=== PATIENT | male | born 1935 | race Caucasian/White ===

== ENCOUNTER 2019-04-28 16:52 | Outpatient (CLI) | payer MEDICARE, SELFPAY ==
[2019-04-28 17:09] LABS: Basophils Absolute Auto 0.03 K/mm3 (0.00-0.10); Basophils Percent Auto 0.4 % (0.0-1.0); Eosinophils Absolute Auto 0.19 K/mm3 (0.02-0.50); Eosinophils Percent Auto 2.8 % (1.0-6.0); Hematocrit 35.5 % (37.0-46.0); Immature Granulocyte Absolute 0.03 K/mm3 (0.00-0.00); Immature Granulocyte Percent A 0.4 % (0.0-0.0); Lymphocytes Absolute Auto 1.79 K/mm3 (1.10-4.50); Mean Corpuscular HGB Conc 28.2 g/dL (32.0-36.0); Mean Corpuscular Hemoglobin 22.9 pg (27.0-31.0); Mean Corpuscular Volume 81.4 fL (78.0-102.0); Mean Platelet Volume 9.6 fl (8.7-11.0); Monocytes Absolute Auto 0.63 K/mm3 (0.10-0.90); Monocytes Percent Auto 9.1 % (2.0-11.0); Neutrophils Absolute Auto 4.2 K/mm3 (1.7-7.2); Neutrophils Percent Auto 61.3 % (50.0-70.0); Platelet Count Result 301 K/mm3 (150-420); Red Blood Count 4.36 M/mm3 (4.70-6.10); Red Cell Distribution Width 16.2 % (11.6-14.4); White Blood Count 6.9 K/mm3 (4.8-10.8)
[2019-04-28 17:56] LABS: Alanine Aminotransferase 15 U/L (16-63); Albumin Level 4.1 g/dL (3.4-5.0); Alkaline Phosphatase 81 U/L (46-116); Anion Gap 11.6 mmol/L (7-16); Aspartate Amino Transferase 10 U/L (15-37); Bilirubin,Total 0.4 mg/dL (0.00-1.00); Blood Urea Nitrogen 14 mg/dL (7-18); Carbon Dioxide 29 mmol/L (21-32); Chloride 105 mmol/L (98-108); Cholesterol 163 mg/dL (0-200); Estimated Glomerular Filt Rate 57; Glucose 95 mg/dL (70-99); HDL Direct 45 mg/dL (40-60); LDL Cholesterol Calculated 95 mg/dL (<130); Osmolality Calculated 292 mOsm/kg (285-295); Potassium 4.6 mmol/L (3.5-5.1); Sodium 141 mmol/L (136-145); Thyroid Stimulating Hormone 2.81 uIU/mL (0.36-3.74); Total Protein 7.3 g/dL (6.4-8.2); Triglycerides 114 mg/dL (0-150)
== END 2019-04-28 16:53 | disposition home or self-care (01) ==
LOC: CHSLAB 16:55
PROVIDERS: PCP Family Medicine; Visit Provider Family Medicine
DX: I10 Essential (primary) hypertension (principal)
CPT/HCPCS: 36415; 80053; 80061; 84443; 85025

== ENCOUNTER 2019-09-26 12:12 | Outpatient (CLI) | payer MEDICARE, SELFPAY ==
[2019-09-26 12:22] LABS: Hematocrit 35.3 % (37.0-46.0); Hemoglobin 10.6 g/dL (12.4-15.3); Mean Corpuscular Hemoglobin 25.1 pg (27.0-31.0); Mean Corpuscular Volume 83.6 fL (78.0-102.0); Mean Platelet Volume 9.7 fl (8.7-11.0); Platelet Count Result 306 K/mm3 (150-420); Red Blood Count 4.22 M/mm3 (4.70-6.10); Red Cell Distribution Width 16.1 % (11.6-14.4); White Blood Count 8.9 K/mm3 (4.8-10.8)
== END 2019-09-26 12:13 | disposition home or self-care (01) ==
PROVIDERS: PCP Family Medicine; Visit Provider Family Medicine
DX: D64.9 Anemia, unspecified (principal)
CPT/HCPCS: 36415; 85027

== ENCOUNTER 2019-10-12 11:39 | Outpatient (CLI) | payer MEDICARE, SELFPAY ==
--- NOTE | ~2019-10-12 | XR_ITS ---
XR chest 2V DATE: 10/12/2019 12:04 INDICATION: Shortness of breath, diaphoresis, weakness. TECHNIQUE: PA and lateral views COMPARISON: 02/02/2019 portable AP chest at 1840 hours FINDINGS: There is a large hiatal hernia with air fluid level. Heart size is within normal limits. There is aortic calcification, ectasia and unfolding. No pulmonary infiltrate or consolidation, pulmonary vascular congestion or pleural effusion or pneumo thorax. Diffuse osteopenia. IMPRESSION: No active cardiopulmonary disease Large hiatal hernia Reviewed, dictated and finalized at location A.
[2019-10-12 12:10] LABS: Basophils Absolute Auto 0.02 K/mm3 (0.00-0.10); Basophils Percent Auto 0.2 % (0.0-1.0); Eosinophils Absolute Auto 0.03 K/mm3 (0.02-0.50); Eosinophils Percent Auto 0.3 % (1.0-6.0); Hematocrit 24.4 % (37.0-46.0); Immature Granulocyte Absolute 0.07 K/mm3 (0.00-0.00); Immature Granulocyte Percent A 0.8 % (0.0-0.0); Lymphocytes Absolute Auto 1.04 K/mm3 (1.10-4.50); Lymphocytes Percent Auto 11.3 % (18.0-42.0); Mean Corpuscular HGB Conc 28.7 g/dL (32.0-36.0); Mean Corpuscular Hemoglobin 24.5 pg (27.0-31.0); Mean Corpuscular Volume 85.3 fL (78.0-102.0); Mean Platelet Volume 9.8 fl (8.7-11.0); Monocytes Absolute Auto 0.65 K/mm3 (0.10-0.90); Neutrophils Absolute Auto 7.4 K/mm3 (1.7-7.2); Neutrophils Percent Auto 80.4 % (50.0-70.0); Nucleated Red Blood Cells Absolute Auto 0.02 K/mm3 (0.00-0.00); Nucleated Red Blood Cells Perc 0.2 % (0-0.0); Platelet Count Result 325 K/mm3 (150-420); Red Blood Count 2.86 M/mm3 (4.70-6.10); Red Cell Distribution Width 16.5 % (11.6-14.4); White Blood Count 9.2 K/mm3 (4.8-10.8)
[2019-10-12 12:57] LABS: Alanine Aminotransferase 18 U/L (16-63); Albumin Level 3.3 g/dL (3.4-5.0); Alkaline Phosphatase 72 U/L (46-116); Anion Gap 11.8 mmol/L (7-16); Aspartate Amino Transferase 12 U/L (15-37); Bilirubin,Total 0.6 mg/dL (0.00-1.00); Blood Urea Nitrogen 42 mg/dL (7-18); CRP 0.5 mg/dL (0.0-0.9); Calcium 8.2 mg/dL (8.5-10.1); Carbon Dioxide 25 mmol/L (21-32); Chloride 102 mmol/L (98-108); Estimated Glomerular Filt Rate 49; Glucose 151 mg/dL (70-99); Osmolality Calculated 291 mOsm/kg (285-295); Potassium 4.8 mmol/L (3.5-5.1); Sodium 134 mmol/L (136-145); Total Protein 6.8 g/dL (6.4-8.2)
[2019-10-12 13:00] LABS: Thyroid Stimulating Hormone Reflex 3.01 u/IU/mL (0.36-3.74)
[2019-10-12 13:08] LABS: Add Urine Microscopic? NO; Appearance Urine Clear (Clear); Bilirubin Urine Negative (Negative); Blood Urine Negative (Negative); Color Urine Yellow (Yellow); Glucose Urine UA Negative (Negative); Ketones Urine Negative (Negative); Leukocyte Esterase Ur Negative LEU/UL (Negative); Nitrate Urine Negative (Negative); Protein Urine Negative (Negative); Urobilinogen Urine 0.2 mg/dL (0.2-1.0)
[2019-10-12 13:14] LABS: Erythrocyte Sedimentation Rate 32 mm/hr (0-20)
[2019-10-12 13:34] LABS: Vitamin B12 485 pg/mL (193-986)
[2019-10-16 19:56] LABS: Vitamin D 25 Hydroxy 34 ng/mL (30-100)
== END 2019-10-12 11:40 | disposition home or self-care (01) ==
PROVIDERS: PCP Family Medicine; Visit Provider Family Medicine
DX: R06.00 Dyspnea, unspecified (principal); R53.1 Weakness; D64.9 Anemia, unspecified; R41.82 Altered mental status, unspecified; Z01.84 Encounter for antibody response examination; Z79.899 Other long term (current) drug therapy
CPT/HCPCS: 36415; 71046; 80053; 81003; 82306; 82607; 82746; 84443; 85025; 85652; 86140; 86769

== ENCOUNTER 2019-10-12 12:22 | Emergency (ER) | payer MEDICARE, SELFPAY ==
[2019-10-12 12:22] VITALS: BP 131/76; PULSE 69; RESP 24; TEMP 36.6; O2SAT 98
--- NOTE | 2019-10-12 12:30 | ECG_ITS ---
Measurements Intervals [place] Rate: 68 P: 1 CT: 149 QRS: 17 QRSD: 86 T: 13 QT: 388 QTc: 413 Interpretive Statements SINUS RHYTHM EARLY PRECORDIAL R/S TRANSITION BASELINE WANDER- III, AVF BORDERLINE ECG Electronically Signed On 10-12-2019 12:45:02 CDT by Lawson Chavez D.O.
[2019-10-12 12:40] LABS: Occult Blood Positive (Negative)
[2019-10-12 12:44] VITALS: RESP 15
[2019-10-12 12:57] LABS: Lactic Acid 2.4 mmol/L (0.4-2.0)
[2019-10-12 13:00] LABS: Troponin I < 0.02 ng/mL (0.00-0.056)
--- NOTE | 2019-10-12 13:11 | ED.GENADULT ---
HPI - General Adult General Chief complaint: Recheck/Abnormal Lab/Rx Stated complaint: sent from dr office History of Present Illness HPI narrative: This is an 83-year-old gentleman presents from his doctor's office with fatigue weakness pale, his primary care physician is concerned about his blood counts and ordered series of labs and found his H&H to be 7 and 24.4 respectively, last H&H performed 2 weeks ago was at 10 and 35. Patient has a history of iron deficiency anemia was seen at [facility] by GI back in December of 2018, patient has a history of GERD, dementia, has been on pantoprazole 40 mg daily and depression. The patient currently appears pale is fatigued with weakness, there is currently no shortness of breath no chest pain no abdominal pain no nausea vomiting. Patient's vital signs are stable his blood pressure is 131/76 with a heart rate of 66 and respiratory O2 sats at 99% on room air. The patient denies any dysuria no flank pain no hematemesis. Onset (ago): unknown Related Data Home Medications Medication Instructions Recorded Confirmed tramadol 50 mg tablet 50 mg PO Q6H PRN 05/05/19 10/12/19 docusate sodium 100 mg PO PRN 10/12/19 10/12/19 Allergies Allergy/AdvReac Type Severity Reaction Status Date / Time cephalexin [From Keflex] Allergy Hives Verified 10/12/19 11:50 diazepam [From Valium] AdvReac Confusion Verified 10/12/19 12:45 Review of Systems Review of Systems: All systems reviewed & are unremarkable except as noted in HPI and below PMFSH Past Medical History Medical History Anemia Chronic back pain Dementia Dementia Dorsalgia Dyspnea on exertion External hemorrhoid surgical removal in 97 Hernia, abdominal Surgical repair x's 2 in the 90's Hypertension Surgical History Surgical History History of back surgery History of back surgery 2013 History of bilateral knee replacement History of knee surgery Bilateral Knees 2009 History of left hip replacement History of left hip replacement 2011 Family History Family History Mother Diabetes mellitus Emphysema of lung Father CAD (coronary artery disease) Dementia Father No problems noted. Mother No problems noted. Social History Social History Smoking status: Former smoker Tobacco type: cigarettes Smoking end date: 03/29/85 Alcohol intake: never Substance use: never Additional living arrangements comments: . Lives with . 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 Gender identity (if verbalized by the patient): Male Spiritual care concerns: No Exam Const: General: no acute distress Orientation/consciousness: patient oriented x3 HENMT: Head: normal to inspection Eyes: Conjunctivae: conjunctivae normal Pupils: Equal, round and reactive pupils present Neck: Neck: normal visual inspection Chest: Chest palpation & inspection: normal inspection of the chest Resp: Effort & Inspection: normal respiratory effort Auscultation: clear to auscultation bilaterally Cardio: Rate: regular rate Rhythm: regular rhythm GI: GI Palp: Yes Soft to palpation : Testes: Testes normal Back/Spine/Pelvis: Back: no CVA tenderness Skin: General skin exam: pallor Neuro: General: moves all extremities, no meningeal signs and no focal motor deficits Speech: normal speech Extrem: General: normal to inspection and no pedal edema Psych: Appearance: grossly normal Attitude: cooperative Course Course Emergency Course: Reassess on a patient vital signs are currently stable with a no chest pain no shortness of breath no abdominal pain, the patient has been typed and screened IV started patient receiving IV Protoni
[2019-10-12] MEDS: SODIUM CHLORIDE 0.9% IV 500 ML 999 ML IV CONT (13:19)
--- NOTE | 2019-10-12 13:43 | PC.NURSE ---
[address] [facility] FOR POSSIBLE TRANSFER. RN SPOKE WITH JUNE. AWAITING CALL BACK. [address] WALL CALLED ER TO SPEAK WITH DR. CROCKETT. PT ACCEPTED FOR TRANSFER TO [facility]. AWAITING ROOM PLACEMENT AT THIS TIME.
--- NOTE | 2019-10-12 14:45 | PC.NURSE ---
RN spoke with [facility] transfer line. Still awaiting bed placement.
--- NOTE | 2019-10-12 14:57 | PC.NURSE ---
80 MG PANTOPRAZOLE/D5W 500 ML FINISHED INFUSING AT THIS TIME. ERP AWARE.
--- NOTE | 2019-10-12 15:01 | PC.NURSE ---
SAAS CONTACTED TO ALS TRANSFER TO [facility], NO RIGA AVAILABLE FOR TRANSFER. [facility] PAGED FOR TRANSFER, AWAITING ARRIVAL.
[2019-10-12 15:08] VITALS: BP 128/58; PULSE 65; RESP 22; O2SAT 100
== END 2019-10-12 15:29 | disposition short-term general hospital (02) ==
PROVIDERS: Emergency Provider Emergency Medicine; PCP Family Medicine
DX: K92.2 Gastrointestinal hemorrhage, unspecified (principal); D64.9 Anemia, unspecified; Z87.891 Personal history of nicotine dependence
CPT/HCPCS: 36415; 83605; 84484; 86850; 86900; 86901; 93005; 96365; 99283; 99285; C9113; J7040

== ENCOUNTER 2019-10-20 10:33 | Outpatient (CLI) | payer MEDICARE, SELFPAY ==
[2019-10-20 10:49] LABS: Basophils Absolute Auto 0.04 K/mm3 (0.00-0.10); Basophils Percent Auto 0.6 % (0.0-1.0); Eosinophils Absolute Auto 0.21 K/mm3 (0.02-0.50); Hematocrit 30.9 % (37.0-46.0); Immature Granulocyte Absolute 0.04 K/mm3 (0.00-0.00); Immature Granulocyte Percent A 0.6 % (0.0-0.0); Lymphocytes Absolute Auto 1.25 K/mm3 (1.10-4.50); Lymphocytes Percent Auto 17.9 % (18.0-42.0); Mean Corpuscular HGB Conc 29.1 g/dL (32.0-36.0); Mean Corpuscular Hemoglobin 25.2 pg (27.0-31.0); Mean Corpuscular Volume 86.6 fL (78.0-102.0); Mean Platelet Volume 10.6 fl (8.7-11.0); Monocytes Absolute Auto 0.59 K/mm3 (0.10-0.90); Monocytes Percent Auto 8.5 % (2.0-11.0); Neutrophils Absolute Auto 4.9 K/mm3 (1.7-7.2); Neutrophils Percent Auto 69.4 % (50.0-70.0); Platelet Count Result 270 K/mm3 (150-420); Red Blood Count 3.57 M/mm3 (4.70-6.10); Red Cell Distribution Width 16.2 % (11.6-14.4)
[2019-10-20 12:00] LABS: Alanine Aminotransferase 20 U/L (16-63); Albumin Level 3.5 g/dL (3.4-5.0); Alkaline Phosphatase 92 U/L (46-116); Anion Gap 12.4 mmol/L (7-16); Aspartate Amino Transferase 13 U/L (15-37); Bilirubin,Total 0.4 mg/dL (0.00-1.00); Blood Urea Nitrogen 14 mg/dL (7-18); Calcium 8.3 mg/dL (8.5-10.1); Carbon Dioxide 28 mmol/L (21-32); Chloride 104 mmol/L (98-108); Estimated Glomerular Filt Rate 56; Ferritin 17 ng/mL (26-388); Glucose 102 mg/dL (70-99); Iron 11 ug/dL (65-175); Osmolality Calculated 290 mOsm/kg (285-295); Percent Iron Saturation 3 % (12-57); Potassium 4.4 mmol/L (3.5-5.1); Sodium 140 mmol/L (136-145); Total Protein 6.5 g/dL (6.4-8.2)
== END 2019-10-20 10:34 | disposition home or self-care (01) ==
PROVIDERS: PCP Family Medicine; Visit Provider Family Medicine
DX: D64.9 Anemia, unspecified (principal)
CPT/HCPCS: 36415; 80053; 82728; 83540; 83550; 85025

== ENCOUNTER 2019-10-27 09:58 | Outpatient (CLI) | payer MEDICARE, SELFPAY ==
[2019-10-27 10:08] LABS: Basophils Absolute Auto 0.04 K/mm3 (0.00-0.10); Basophils Percent Auto 0.5 % (0.0-1.0); Eosinophils Absolute Auto 0.17 K/mm3 (0.02-0.50); Eosinophils Percent Auto 2.3 % (1.0-6.0); Hematocrit 32.5 % (37.0-46.0); Hemoglobin 9.6 g/dL (12.4-15.3); Immature Granulocyte Absolute 0.03 K/mm3 (0.00-0.00); Immature Granulocyte Percent A 0.4 % (0.0-0.0); Lymphocytes Absolute Auto 1.24 K/mm3 (1.10-4.50); Lymphocytes Percent Auto 16.6 % (18.0-42.0); Mean Corpuscular HGB Conc 29.5 g/dL (32.0-36.0); Mean Corpuscular Hemoglobin 24.8 pg (27.0-31.0); Mean Platelet Volume 10.3 fl (8.7-11.0); Monocytes Absolute Auto 0.59 K/mm3 (0.10-0.90); Monocytes Percent Auto 7.9 % (2.0-11.0); Neutrophils Absolute Auto 5.4 K/mm3 (1.7-7.2); Neutrophils Percent Auto 72.3 % (50.0-70.0); Platelet Count Result 390 K/mm3 (150-420); Red Blood Count 3.87 M/mm3 (4.70-6.10); Red Cell Distribution Width 16.3 % (11.6-14.4); White Blood Count 7.5 K/mm3 (4.8-10.8)
== END 2019-10-27 09:59 | disposition home or self-care (01) ==
LOC: CHSLAB 10:00
PROVIDERS: PCP Family Medicine; Visit Provider Family Medicine
DX: D64.9 Anemia, unspecified (principal)
CPT/HCPCS: 36415; 85025

== ENCOUNTER 2019-11-01 11:39 | Outpatient (CLI) | payer MEDICARE, SELFPAY ==
[2019-11-01 11:49] LABS: Basophils Absolute Auto 0.04 K/mm3 (0.00-0.10); Basophils Percent Auto 0.6 % (0.0-1.0); Eosinophils Absolute Auto 0.25 K/mm3 (0.02-0.50); Eosinophils Percent Auto 3.7 % (1.0-6.0); Hematocrit 30.8 % (37.0-46.0); Hemoglobin 8.9 g/dL (12.4-15.3); Immature Granulocyte Absolute 0.06 K/mm3 (0.00-0.00); Immature Granulocyte Percent A 0.9 % (0.0-0.0); Lymphocytes Absolute Auto 1.37 K/mm3 (1.10-4.50); Lymphocytes Percent Auto 20.1 % (18.0-42.0); Mean Corpuscular HGB Conc 28.9 g/dL (32.0-36.0); Mean Corpuscular Hemoglobin 24.1 pg (27.0-31.0); Mean Corpuscular Volume 83.5 fL (78.0-102.0); Mean Platelet Volume 9.6 fl (8.7-11.0); Monocytes Absolute Auto 0.72 K/mm3 (0.10-0.90); Monocytes Percent Auto 10.6 % (2.0-11.0); Neutrophils Absolute Auto 4.4 K/mm3 (1.7-7.2); Neutrophils Percent Auto 64.1 % (50.0-70.0); Platelet Count Result 293 K/mm3 (150-420); Red Blood Count 3.69 M/mm3 (4.70-6.10); Red Cell Distribution Width 16.4 % (11.6-14.4); White Blood Count 6.8 K/mm3 (4.8-10.8)
== END 2019-11-01 11:40 | disposition home or self-care (01) ==
LOC: CHSLAB 11:40
PROVIDERS: PCP Family Medicine; Visit Provider Family Medicine
DX: D64.9 Anemia, unspecified (principal)
CPT/HCPCS: 36415; 85025

== ENCOUNTER 2019-11-14 15:43 | Outpatient (CLI) | payer MEDICARE, SELFPAY ==
[2019-11-14 15:54] LABS: Basophils Absolute Auto 0.05 K/mm3 (0.00-0.10); Basophils Percent Auto 0.7 % (0.0-1.0); Eosinophils Absolute Auto 0.21 K/mm3 (0.02-0.50); Eosinophils Percent Auto 2.8 % (1.0-6.0); Hematocrit 34.3 % (37.0-46.0); Hemoglobin 9.6 g/dL (12.4-15.3); Immature Granulocyte Absolute 0.04 K/mm3 (0.00-0.00); Immature Granulocyte Percent A 0.5 % (0.0-0.0); Lymphocytes Absolute Auto 1.65 K/mm3 (1.10-4.50); Lymphocytes Percent Auto 22.2 % (18.0-42.0); Mean Corpuscular Hemoglobin 24.6 pg (27.0-31.0); Mean Corpuscular Volume 87.9 fL (78.0-102.0); Mean Platelet Volume 10.3 fl (8.7-11.0); Monocytes Absolute Auto 0.74 K/mm3 (0.10-0.90); Monocytes Percent Auto 9.9 % (2.0-11.0); Neutrophils Absolute Auto 4.8 K/mm3 (1.7-7.2); Neutrophils Percent Auto 63.9 % (50.0-70.0); Platelet Count Result 310 K/mm3 (150-420); Red Cell Distribution Width 20.5 % (11.6-14.4); White Blood Count 7.4 K/mm3 (4.8-10.8)
== END 2019-11-14 15:44 | disposition home or self-care (01) ==
LOC: CHSLAB 15:44
PROVIDERS: PCP Family Medicine; Visit Provider Family Medicine
DX: D64.9 Anemia, unspecified (principal)
CPT/HCPCS: 36415; 85025

== ENCOUNTER 2019-12-05 15:23 | Outpatient (CLI) | payer MEDICARE, SELFPAY ==
[2019-12-05 15:32] LABS: Basophils Absolute Auto 0.04 K/mm3 (0.00-0.10); Basophils Percent Auto 0.7 % (0.0-1.0); Eosinophils Absolute Auto 0.17 K/mm3 (0.02-0.50); Eosinophils Percent Auto 2.8 % (1.0-6.0); Hematocrit 42.2 % (37.0-46.0); Hemoglobin 12.6 g/dL (12.4-15.3); Immature Granulocyte Absolute 0.03 K/mm3 (0.00-0.00); Immature Granulocyte Percent A 0.5 % (0.0-0.0); Lymphocytes Absolute Auto 1.59 K/mm3 (1.10-4.50); Lymphocytes Percent Auto 26.2 % (18.0-42.0); Mean Corpuscular HGB Conc 29.9 g/dL (32.0-36.0); Mean Corpuscular Volume 90.4 fL (78.0-102.0); Mean Platelet Volume 9.2 fl (8.7-11.0); Monocytes Percent Auto 9.9 % (2.0-11.0); Neutrophils Absolute Auto 3.7 K/mm3 (1.7-7.2); Neutrophils Percent Auto 59.9 % (50.0-70.0); Platelet Count Result 223 K/mm3 (150-420); Red Blood Count 4.67 M/mm3 (4.70-6.10); Red Cell Distribution Width 21.5 % (11.6-14.4); White Blood Count 6.1 K/mm3 (4.8-10.8)
== END 2019-12-05 15:24 | disposition home or self-care (01) ==
LOC: CHSLAB 15:25
PROVIDERS: PCP Family Medicine; Visit Provider Family Medicine
DX: E03.9 Hypothyroidism, unspecified (principal)
CPT/HCPCS: 36415; 85025

== ENCOUNTER 2020-03-28 09:52 | Outpatient (CLI) | payer MEDICARE, SELFPAY ==
[2020-03-28 10:02] LABS: Basophils Absolute Auto 0.03 K/mm3 (0.00-0.10); Basophils Percent Auto 0.5 % (0.0-1.0); Eosinophils Absolute Auto 0.14 K/mm3 (0.02-0.50); Eosinophils Percent Auto 2.4 % (1.0-6.0); Hematocrit 41.2 % (37.0-46.0); Hemoglobin 13.3 g/dL (12.4-15.3); Immature Granulocyte Absolute 0.03 K/mm3 (0.00-0.00); Immature Granulocyte Percent A 0.5 % (0.0-0.0); Lymphocytes Absolute Auto 1.33 K/mm3 (1.10-4.50); Lymphocytes Percent Auto 22.7 % (18.0-42.0); Mean Corpuscular HGB Conc 32.3 g/dL (32.0-36.0); Mean Corpuscular Hemoglobin 32.6 pg (27.0-31.0); Mean Platelet Volume 9.3 fl (8.7-11.0); Monocytes Absolute Auto 0.49 K/mm3 (0.10-0.90); Monocytes Percent Auto 8.4 % (2.0-11.0); Neutrophils Absolute Auto 3.8 K/mm3 (1.7-7.2); Neutrophils Percent Auto 65.5 % (50.0-70.0); Platelet Count Result 238 K/mm3 (150-420); Red Blood Count 4.08 M/mm3 (4.70-6.10); Red Cell Distribution Width 13.6 % (11.6-14.4); White Blood Count 5.9 K/mm3 (4.8-10.8)
== END 2020-03-28 09:53 | disposition home or self-care (01) ==
LOC: CHSLAB 09:54
PROVIDERS: PCP Family Medicine; Visit Provider Family Medicine
DX: D64.9 Anemia, unspecified (principal)
CPT/HCPCS: 36415; 85025

== ENCOUNTER 2020-05-05 08:21 | Inpatient (IN) | payer MEDICARE, SELFPAY ==
[2020-05-05] VITALS (8 sets, daily range): BP systolic 140–195; BP diastolic 84–105; PULSE 52–63; RESP 16–20; TEMP 36.5–37.2; O2SAT 93–97; BMI 28.2
--- NOTE | ~2020-05-05 | US_ITS ---
EXAMINATION: US carotid duplex BI DATE: 05/06/2020 10:08 INDICATION: Ataxia. TECHNIQUE: Grayscale, color Doppler, and pulsed Doppler images of the cervical carotid arteries were obtained. The degree of vessel stenosis is placed in one of the following categories: normal, <50%, 5 0-69%, >=70% but less than near-occlusion, near-occlusion, or total occlusion. Note that percent sten osis relative to normal distal artery lumen diameter is indirectly measured from velocity measurement s as described by Kamar, et al. Radiology 2003; 229:340-346. COMPARISON: None. FINDINGS: RIGHT: The right common carotid artery (CCA) peak systolic velocity (PSV) is 111 cm/s. The right internal ca rotid artery (ICA) PSV is 115 cm/s. The right ICA end-diastolic velocity (EDV) is 10 cm/s. The right ICA/CCA PSV ratio is 1.0. Grayscale and color Doppler images yield an estimate of <50% diameter reduc tion from plaque in the ICA. There is antegrade flow in the right vertebral artery. LEFT: The left CCA PSV is 93 cm/s. The left ICA PSV is 74 cm/s. The left ICA EDV is 0 cm/s. The left ICA/CC A PSV ratio is 0.8. Grayscale and color Doppler images yield an estimate of <50% diameter reduction f rom plaque in the ICA. There is antegrade flow in the left vertebral artery. IMPRESSION: 1. <50% stenosis in the right internal carotid artery. 2. <50% stenosis in the left internal carotid artery. Reviewed, dictated and finalized at location A. LER TIER
--- NOTE | ~2020-05-05 | XR_ITS ---
EXAMINATION: XR chest 2V DATE: 05/05/2020 09:11 INDICATION: Rales. Dizziness. TECHNIQUE: Frontal and lateral views of the chest were obtained on 3 radiographs. COMPARISON: Chest 2 views 10/12/2019, CT abdomen and pelvis 07/05/17 FINDINGS: There are mild airspace opacities in the mid and lower lung zones. There is a right posteri or diaphragmatic hernia that contained fat on the prior CT. No pleural effusion or pneumothorax. The heart size is normal. There is a large hiatal hernia. IMPRESSION: 1. Mild airspace opacities in the mid and lower lung zones, likely atelectasis. Pneumonia is less lik paulina. 2. Large hiatal hernia. Reviewed, dictated and finalized at location A. ION SUPERVISOR IMPRESSION: 1. Mild airspace opacities in the mid and lower lung zones, likely atelectasis. Pneumonia is less likely. 2. Large hiatal hernia.
--- NOTE | ~2020-05-05 | MR_ITS ---
EXAMINATION: MR brain/brain stem wo/w con DATE: 05/08/2020 10:51 INDICATION: Ataxia. Vertigo. TECHNIQUE: Magnetic resonance imaging (MRI) of the brain and brainstem was performed without and with 17 mL MultiHance intravenous contrast. Sequences included sagittal and axial T1-weighted FSE, axial diffusion-weighted FS EPI, axial T2*-weighted GRE, axial T2-weighted FLAIR Propeller, and axial T2-we ighted Propeller. Postcontrast sequences included axial and coronal T1-weighted FSE. Apparent diffusi on coefficient (ADC) maps were created. COMPARISON: Head CT 05/05/2020 FINDINGS: There is a small acute infarct in the right frontal lobe deep white matter. There is an acu te infarct in the medulla on the right. There are scattered areas of nonspecific increased T2-weighte d signal intensity in the cerebral white matter and bernardo. There is no intracranial hemorrhage or abno rmal mass lesion. There is mild mucosal thickening in left maxillary sinus. There are likely changes of ocular lens replacement surgeries. The mastoid air cells are normal. IMPRESSION: 1. 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 2. Extensive nonspecific cerebral white matter disease and pontine disease, which likely represents c hronic small vessel ischemic disease. Reviewed, dictated and finalized at location A. ISIONING ANALYST IMPRESSION: 1. 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 2. Extensive nonspecific cerebral white matter disease and pontine disease, whi ch likely represents chronic small vessel ischemic disease.
--- NOTE | ~2020-05-05 | CT_ITS ---
EXAMINATION: CT brain wo con DATE: 05/05/2020 09:11 INDICATION: Dizziness. TECHNIQUE: Computed tomography (CT) of the head was performed without intravenous contrast. The mA wa s adjusted according to patient size. Iterative reconstruction technique was employed. The dose-lengt h product was 529.67 mGy-cm. COMPARISON: Head CT 04/06/2012 FINDINGS: There are scattered areas of low attenuation in the cerebral white matter. There is no intr acranial hemorrhage, acute infarction, or abnormal intracranial mass lesion. The ventricles are donovan l in size. There are likely changes of ocular lens replacement surgeries. There is mild mucosal thick ening in the paranasal sinuses. The mastoid air cells are normal. IMPRESSION: 1. Worsened extensive nonspecific cerebral white matter disease, which likely represents chronic smal l vessel ischemic disease. Reviewed, dictated and finalized at location A. ENT FINANCIAL COORDINATOR IMPRESSION: 1. Worsened extensive nonspecific cerebral white matter disease, which likely r epresents chronic small vessel ischemic disease.
--- NOTE | 2020-05-05 08:31 | ED.DIZZY ---
HPI - Dizziness General Chief Complaint: Dizziness Stated Complaint: dizzy,weak Time Seen by Provider: 05/05/20 08:32 Source: patient Mode of arrival: wheelchair Limitations: no limitations History of Present Illness HPI Narrative: 84-year-old man with a history of vertigo brought in today by his for intermittent dizziness that started 2 days ago. Describes it as his head spinning. C/o nausea but no vomiting. He states he had has episodes while lying in bed. Getting out of bed is particularly difficult. He denies any recent head injury, change in his hearing, ringing in his ears, cough or cold symptoms, shortness breath, chest pain, weakness or syncope. MD elicited complaint: dizziness Onset (ago): day(s) (2) Timing: sudden onset Severity: severe Description: room spinning Context: change in body position Exacerbating factors: change in body position Relieving factors: remaining still Associated symptoms: nausea Related Data Home Medications Medication Instructions Recorded Confirmed tramadol 50 mg tablet 50 mg PO Q6H PRN 05/05/19 05/05/20 docusate sodium 100 mg PO DAILY 10/12/19 05/05/20 donepezil 5 mg PO HS 05/05/20 05/05/20 pantoprazole 40 mg PO DAILY 05/05/20 05/05/20 Allergies Allergy/AdvReac Type Severity Reaction Status Date / Time cephalexin [From Keflex] Allergy Hives Verified 04/03/20 10:03 diazepam [From Valium] AdvReac Confusion Verified 04/03/20 10:03 Review of Systems Constitutional: Constitutional: Denies chills, Denies fever(s) and Denies weakness Eyes: Eyes: Denies change in vision and Denies photophobia ENT: Denies dysphagia, Denies nasal congestion and Denies sore throat Cardiovascular: Cardiovascular: Denies chest pain and Denies radiating jaw, neck or arm pain Respiratory: Respiratory: Denies cough and Denies dyspnea Gastrointestinal: Gastrointestinal: Denies abdominal pain, Reports nausea and Denies vomiting Genitourinary: Genitourinary: Denies urinary frequency and Denies urinary incontinence Musculoskeletal: Musculoskeletal: Reports back pain, Denies arthralgias and Denies joint swelling Integumentary/Breasts: Skin/Breast: Denies pruritus, Denies erythema and Denies rash Neurologic: Reports vertigo and Denies syncope Hematologic/Lymphatic: Hematologic/Lymphatic: Denies easy bleeding and Denies easy bruising Allergic/Immunologic: Allergic/Immunologic: Denies lip swelling and Denies throat swelling [facility] Past Medical History Medical History (Updated 05/05/20 @ 09:56 by Gregorio Johnson MD) Anemia Chronic back pain Dementia Dementia Dorsalgia Dyspnea on exertion External hemorrhoid surgical removal in 97 GERD (gastroesophageal reflux disease) GI bleed Hernia, abdominal Surgical repair x's 2 in the 's Hypertension Surgical History Surgical History History of back surgery History of back surgery 2014 History of bilateral knee replacement History of knee surgery Bilateral Knees 2009 History of left hip replacement History of left hip replacement 2011 Family History Family History Mother Diabetes mellitus Emphysema of lung Father CAD (coronary artery disease) Dementia Father No problems noted. Mother No problems noted. Social History Social History Smoking status: Former smoker Tobacco type: cigarettes Smoking end date: 03/29/85 Alcohol intake: never Substance use: never Additional living arrangements comments: . Lives with . 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
--- NOTE | 2020-05-05 08:32 | ECG_ITS ---
Measurements Intervals [place] Rate: 51 P: -7 HI: 152 QRS: 26 QRSD: 90 T: 26 QT: 451 QTc: 417 Interpretive Statements SINUS BRADYCARDIA BASELINE ARTIFACT- I, III, AVL, AVF BORDERLINE ECG Electronically Signed On 05-06-2020 7:57:18 QUILL COLLECTOR by Lawson Chavez D.O.
[2020-05-05 08:54] LABS: Basophils Absolute Auto 0.04 K/mm3 (0.00-0.10); Basophils Percent Auto 0.5 % (0.0-1.0); Eosinophils Absolute Auto 0.09 K/mm3 (0.02-0.50); Eosinophils Percent Auto 1.1 % (1.0-6.0); Hematocrit 38.6 % (37.0-46.0); Hemoglobin 12.6 g/dL (12.4-15.3); Immature Granulocyte Absolute 0.06 K/mm3 (0.00-0.00); Immature Granulocyte Percent A 0.8 % (0.0-0.0); Lymphocytes Percent Auto 15.1 % (18.0-42.0); Mean Corpuscular HGB Conc 32.6 g/dL (32.0-36.0); Mean Corpuscular Hemoglobin 32.3 pg (27.0-31.0); Mean Platelet Volume 9.3 fl (8.7-11.0); Monocytes Absolute Auto 0.62 K/mm3 (0.10-0.90); Monocytes Percent Auto 7.8 % (2.0-11.0); Neutrophils Percent Auto 74.7 % (50.0-70.0); Platelet Count Result 249 K/mm3 (150-420); Red Cell Distribution Width 12.8 % (11.6-14.4)
[2020-05-05 09:13] LABS: Alanine Aminotransferase 21 U/L (16-63); Albumin Level 3.4 g/dL (3.4-5.0); Alkaline Phosphatase 67 U/L (46-116); Anion Gap 6 mmol/L (8-16); Aspartate Amino Transferase < 10 U/L (15-37); Bilirubin,Total 0.6 mg/dL (0.00-1.00); Blood Urea Nitrogen 12 mg/dL (7-18); Calcium 8.5 mg/dL (8.5-10.1); Carbon Dioxide 29 mmol/L (21-32); Chloride 98 mmol/L (98-108); Estimated CRCL calculation 43 ml/min; Estimated Glomerular Filt Rate > 60; Glucose 120 mg/dL (70-99); Osmolality Calculated 276 mOsm/kg (285-295); Potassium 4.1 mmol/L (3.5-5.1); Sodium 133 mmol/L (136-145); Total Protein 7.1 g/dL (6.4-8.2); Troponin I 11.6 ng/L (0.00-60.4)
[2020-05-05] MEDS: ONDANSETRON HCL ODT 4 MG TABLET PO (09:40)
--- NOTE | 2020-05-05 09:41 | PC.NURSE ---
Attempted insert of straight cath for UA collection, unsuccessful.
[2020-05-05 10:22] LABS: Add Urine Microscopic? NO; Appearance Urine Clear (Clear); Bilirubin Urine Negative (Negative); Blood Urine Negative (Negative); Color Urine Yellow (Yellow); Glucose Urine UA Negative (Negative); Ketones Urine Negative (Negative); Leukocyte Esterase Ur Negative (Negative); Nitrate Urine Negative (Negative); Protein Urine Negative (Negative); Specific Grav Ur 1.025 (1.010-1.020); Urobilinogen Urine 0.2 mg/dL (0.2-1.0)
--- NOTE | 2020-05-05 10:30 | ADMGEN ---
This patient, Ceferino Farias, was admitted to 2nd Floor Room 207-2. Patient/family oriented to hospital policies and general routines including ID bracelet, bed and alarms, visiting hours, pain management, procedures, bathroom and other care routines, personal items, smoking policy, room service/diet, and visiting hours. Information on how to activate the Rapid Response Team has been discussed. Patient/Family are encouraged to report perceived risks to care and to ask questions if they do not understand what they are told or what they should do.
--- NOTE | 2020-05-05 11:47 | PM.IMHP ---
H&P: HPI History of Present Illness Date/Time: 05/05/20 11:47 Chief Complaint: Dizziness Narrative: Ceferino Farias is a 84 year old male who was not the best historian. I did call the patient's and she was able to tell me the following. Starting 2 nights ago patient became dizzy. The states that this has happened in the past and usually after a day the dizziness is resolved. However patient did stumble and fell against the bathroom door frame. Patient apparently complained of some back pain and the gave the patient some tramadol for his pain. The states that his dizziness did not resolve. She then decided the next day to bring the patient to the hospital for his ongoing dizziness. states that no medications have been changed no new additions of any medication and no discontinuation of any medication. admits that patient may have not taken his donepezil once or twice. And she admits that she usually only gives the patient tramadol twice a day and states that yesterday she only give it to him once. The patient says he does not even know why he is in the hospital. Review of Systems Review of Systems: Narrative: Patient cannot remember why he is in the hospital but he is able to hold a conversation without being off subject for most of the conversation. Patient denies headache changes in vision chest pain shortness of breathing abdominal issues urinary issues muscle skeletal issues. ROS unobtainable: Yes unobtainable due to mental status (Patient does not recall why he is in the hospital) [facility] Past Medical History Medical History Anemia Chronic back pain Dementia Dementia Dorsalgia Dyspnea on exertion External hemorrhoid surgical removal in 97 GERD (gastroesophageal reflux disease) GI bleed Hernia, abdominal Surgical repair x's 2 in the 90's Hypertension Surgical History Surgical History History of back surgery History of back surgery 2014 History of bilateral knee replacement History of knee surgery Bilateral Knees 2009 History of left hip replacement History of left hip replacement 2011 Family History Family History Mother Diabetes mellitus Emphysema of lung Father CAD (coronary artery disease) Dementia Father No problems noted. Mother No problems noted. Social History Social History Smoking status: Former smoker Tobacco type: cigars Second hand tobacco smoke exposure: Yes Smoking end date: 03/29/85 Alcohol intake: current Drinks per week: 1 Substance use: never Additional living arrangements comments: . Lives with . 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 Gender identity (if verbalized by the patient): Male Spiritual care concerns: No Meds Home Medications and Allergies Home Medications Medication Instructions Recorded Confirmed Type tramadol 50 mg tablet 50 mg PO Q6H PRN 05/05/19 05/05/20 History ferrous sulfate 325 mg (65 mg 325 mg PO BID #120 tablet 06/16/19 05/05/20 Rx iron) tablet docusate sodium 100 mg PO DAILY 10/12/19 05/05/20 History citalopram 20 mg tablet 20 mg PO DAILY #90 tablet 04/03/20 05/05/20 Rx donepezil 5 mg PO HS 05/05/20 05/05/20 History pantoprazole 40 mg PO DAILY 05/05/20 05/05/20 History Allergies Allergy/AdvReac Type Severity Reaction Status Date / Time cephalexin [From Keflex] Allergy Hives Verified 04/03/20 10:03 diazepam [From Valium] AdvReac Confusion Verified 04/03/20 10:03 Vital Signs Vital Signs - 24 hr 05/05/20 08:25 05/05/20 09:20 05/05/20 09:23 Temperature 98.9 F Pulse Rate 55 L 53 L 54 L Respiratory Rate 16 Blood Pressure 164/92 H 153/86 H 140/84 Pulse Oximetry 94
--- NOTE | 2020-05-05 13:29 | PC.NURSE ---
Patient repeatedly climbed out of bed. Bed alarm on. Patient placed in recliner, feet elevated. Patient climbed out of recliner. Alarm on
--- NOTE | 2020-05-05 15:40 | PC.NURSE ---
sitter in room, pt uses urinal with assist, pt knows his is at a [employer] [facility] but thinks he is here for a knee replacement, reoriented, skin tear on elbow rewrapped with coban, pt continues to try picking at skin tears and iv
[2020-05-05] MEDS: MECLIZINE HCL 25 MG TABLET PO (16:31)
[2020-05-05] MEDS: DOCUSATE SODIUM 100 MG CAPSULE PO (16:31)
[2020-05-05] MEDS: FERROUS SULFATE 324 MG TABLET PO (16:33)
[2020-05-05] MEDS: lisinopriL 5 MG TABLET PO (18:29)
[2020-05-05] MEDS: DONEPEZIL HCL 5 MG TABLET 10 MG PO (20:27)
--- NOTE | 2020-05-05 22:05 | PC.NURSE ---
Johnnie ALTMAN, left patients room as patient has been 1:1 care for past several hours. Patient is resting at this time in bed. Stoker Erector entered room and checked on patient. Bed exit alarm was set on bed, side rails up in place.
--- NOTE | 2020-05-05 22:20 | PC.NURSE ---
Bed exit alarm going off patient trying to get out of bed to use restroom. Urinal was given. Bed exit alarm set.
--- NOTE | 2020-05-05 22:50 | PC.NURSE ---
Bed exit alarm going off. Patient unable to give description of needs. Patient was talking about needing to get home to the baby. Roll Grinder asked why baby patient was talking about, patient stated I dont know. Assisted patient back into bed and bed exit alarm set.
--- NOTE | 2020-05-05 23:00 | PC.NURSE ---
Bed exit alarm sounding and patient was trying to get out of bed to use restroom. Patient was assisted with toileting and back into bed. Bed exit alarm set.
--- NOTE | 2020-05-05 23:45 | PC.NURSE ---
Bed exit alarm was sounding off and patient had legs out of bed and trying to ambulate by self without assistance or devices. Patient needed to use restroom. Urinal was given to patient. Bed exit alarm set.
[2020-05-06] VITALS (7 sets, daily range): BP systolic 114–184; BP diastolic 58–96; PULSE 55–65; RESP 18–20; TEMP 36.4–37; O2SAT 93–96
--- NOTE | 2020-05-06 01:01 | PC.NURSE ---
Gas Or Petroleum Operator noted patient's leg and feet moving and bed and telemetry alarm sounding. Gas Or Petroleum Operator entered room and noted patients gown at neck and patient was ripping off stickers and telemetry leads. Gas Or Petroleum Operator explained that these were in place to monitor his heart. Patient stated okay and tag writer replaced sticker and leads.
[2020-05-06 05:29] LABS: Basophils Absolute Auto 0.03 K/mm3 (0.00-0.10); Basophils Percent Auto 0.5 % (0.0-1.0); Eosinophils Absolute Auto 0.11 K/mm3 (0.02-0.50); Eosinophils Percent Auto 1.7 % (1.0-6.0); Hematocrit 38.5 % (37.0-46.0); Hemoglobin 12.3 g/dL (12.4-15.3); Immature Granulocyte Absolute 0.04 K/mm3 (0.00-0.00); Immature Granulocyte Percent A 0.6 % (0.0-0.0); Lymphocytes Absolute Auto 1.16 K/mm3 (1.10-4.50); Lymphocytes Percent Auto 18.4 % (18.0-42.0); Mean Corpuscular HGB Conc 31.9 g/dL (32.0-36.0); Mean Corpuscular Hemoglobin 31.3 pg (27.0-31.0); Mean Platelet Volume 9.6 fl (8.7-11.0); Monocytes Absolute Auto 0.64 K/mm3 (0.10-0.90); Monocytes Percent Auto 10.2 % (2.0-11.0); Neutrophils Absolute Auto 4.3 K/mm3 (1.7-7.2); Neutrophils Percent Auto 68.6 % (50.0-70.0); Platelet Count Result 245 K/mm3 (150-420); Red Blood Count 3.93 M/mm3 (4.70-6.10); Red Cell Distribution Width 12.6 % (11.6-14.4); White Blood Count 6.3 K/mm3 (4.8-10.8)
[2020-05-06 05:42] LABS: Alanine Aminotransferase 19 U/L (16-63); Albumin Level 3.3 g/dL (3.4-5.0); Alkaline Phosphatase 63 U/L (46-116); Anion Gap 8 mmol/L (8-16); Aspartate Amino Transferase 12 U/L (15-37); Bilirubin,Total 0.7 mg/dL (0.00-1.00); Blood Urea Nitrogen 13 mg/dL (7-18); Calcium 8.3 mg/dL (8.5-10.1); Carbon Dioxide 28 mmol/L (21-32); Chloride 99 mmol/L (98-108); Estimated CRCL calculation 41 ml/min; Estimated Glomerular Filt Rate 59; Glucose 100 mg/dL (70-99); Osmolality Calculated 280 mOsm/kg (285-295); Potassium 4.1 mmol/L (3.5-5.1); Sodium 135 mmol/L (136-145); Total Protein 6.4 g/dL (6.4-8.2)
--- NOTE | 2020-05-06 07:20 | ECHO_ITS ---
Patient Info Name: Ceferino Farias Age: 84 years : 1935 Gender: Male Ht: 69 in Wt: 191 lbs BSA: 2.07 m2 HR: 55 bpm BP: 175 / 90 mmHg Technical Quality: Fair Exam Date: 05/06/2020 10:36 AM Exam Location: [facility] Patient Status: Inpatient Admit Date: 05/05/2020 Staff Ordering Physician: Tremayne Arroyo Shellfish Meat Separator Operator: Chelsie Cole RDCS Attending Provider: Gregorio Johnson MD Referring Physician: Cruz MULLIGAN; Exam Type: CA echo doppler color flow Study Info Indications R27.0 - Ataxia, unspecified Complete two-dimensional, color flow and Doppler transthoracic echocardiogram is performed. Strain analysis performed. History/Risk Factors Hypertension: Yes Obesity: No Tobacco Use: Former Family History: Diabetes Mellitus, Coronary Artery Disease Summary 1. Complete two-dimensional, color flow and Doppler transthoracic echocardiogram is performed. 2. Left ventricular chamber dimension is normal. 3. Left ventricular systolic function is normal, estimated at 60-65%. 4. There is mildly increased left ventricular wall thickness. 5. The left ventricular diastolic function is grade I diastolic dysfunction. 6. E/e' 12 is mildly elevated. 7. Global longitudinal strain is normal at -21.4%. 8. There is mild to moderate aortic valve regurgitation. 9. There is trace mitral valve regurgitation. 10. There is trace tricuspid valve regurgitation. Left Ventricle E/e' 12 is mildly elevated. Global longitudinal strain is normal at -21.4%. Left ventricular chamber dimension is normal. Left ventricular systolic function is normal, estimated at 60-65%. There is mildly increased left ventricular wall thickness. The left ventricular diastolic function is grade I diastolic dysfunction. Right Ventricle Right ventricular chamber dimension is normal. Right ventricular systolic function is normal. Left Atria Left atrial chamber dimension is normal. Right Atria Right atrial chamber dimension is normal. Aortic Valve The aortic valve is trileaflet. There is no aortic valve stenosis. There is mild to moderate aortic valve regurgitation. Pulmonic Valve There is no pulmonic regurgitation. Mitral Valve There is no mitral valve stenosis. There is trace mitral valve regurgitation. Tricuspid Valve There is trace tricuspid valve regurgitation. RVSP is not calculated due to an inadequate TR jet. Pericardium/Pleural There is no pericardial effusion. Inferior Vena Cava Normal inferior vena cava with >50% collapse upon inspiration consistent with normal right atrial pressure, 5 mmHg. Aorta The aortic root size at the sinus of Valsalva is normal. Left Ventricular Outflow Tract Name Value Normal LVOT 2D LVOT Diameter 2.1 cm LVOT Doppler LVOT Peak Velocity 157 cm/s LVOT Peak Gradient 10 mmHg LVOT Mean Gradient 5 mmHg LVOT VTI 31 cm LVOT VTI/AV VTI Ratio 0.8 LVOT Stroke Volume 108 ml Mitral Brooke
[2020-05-06] MEDS: KETOROLAC 15 MG/ML VIAL (*BKC) IV PUSH (09:41)
[2020-05-06] MEDS: lisinopriL 10 MG TABLET PO (09:42)
[2020-05-06] MEDS: FERROUS SULFATE 324 MG TABLET PO ×2 (09:42→17:53)
[2020-05-06] MEDS: DOCUSATE SODIUM 100 MG CAPSULE PO ×2 (09:42→17:53)
[2020-05-06] MEDS: PANTOPRAZOLE 40 MG TABLET PO (09:43)
[2020-05-06] MEDS: ASPIRIN 325 MG ENTERIC TABLET PO (09:43)
[2020-05-06] MEDS: CITALOPRAM HYDROBROMIDE 20 MG TABLET PO (09:43)
[2020-05-06] MEDS: MECLIZINE HCL 25 MG TABLET PO ×3 (09:49→17:53)
--- NOTE | 2020-05-06 13:47 | PM.IMPN ---
Progress Note: A&P Assessment and Plan (1) Vertigo: Code(s): R42 - Dizziness and giddiness Status: Acute Assessment and Plan: 05/05/2020 vertigo versus stroke versus ataxia versus other conditions, head CT was negative for an acute stroke, patient given Antivert, negative for UTI, no obvious signs of infection, no severe anemia, sitter ordered to be at patient's bedside as patient will get out of bed without calling for assistance and he is unable to walk without loss of balance this includes using a walker, Physical occupational therapy was ordered to assist with patient's balance issues. 05/06/2020 Bilateral Carodid US <50% bilateral stenosis, Echocardiogram pending, Antivert started yesterday with no improvement today, head MRI scheduled for Wednesday, PT did evaluation and states Pt will have to have someone at home with him to get him up and walking as he is unable to do this on his own at this time. Pt even states that he is unable to get up and walk because he is too dizzy. Improved from yesterday as he was trying quite often to get up and walk without assistance. (2) Dementia: Code(s): F03.90 - Unspecified dementia without behavioral disturbance Status: Chronic Assessment and Plan: 05/05/2020 continue donepezil however will increase to 10 mg nightly 05/06/2020 Continue with increased Tx, If headache persist decrease back to 5 mg (3) Hypertension: Code(s): I10 - Essential (primary) hypertension Status: Chronic Assessment and Plan: 05/05/2020 patient blood pressure seemed to be stable in the emergency room upon arrival to the floor patient did have 1 time elevated blood pressure in the 170s likely due to unfamiliar environment and patient not understanding why he was in the hospital and the fact he did know he was in the hospital, patient is not currently on any blood pressure medication from home, will monitor and make additions of medications as needed. 05/06/2020 systolic between 125 and 175, Pt denies any issues when he had the one time higher BP, Average systolic BP 157 over the past 2 days (4) Headache: Code(s): R51.9 - Headache, unspecified Status: Acute Assessment and Plan: 05/06/2020 Pt states he is having a BOLANOS but does not really qualify it as a BOLANOS, try a 1 time dose of TIII Subjective Date/time seen: 05/06/20 13:47 Pt is communicating better today. He admits to a headache without any particular focal point. Denies changes in vision. There is no improvement in his balance today. Pt denies any other issues at this time. Review of Systems Constitutional: Constitutional: Reports no additional constitutional complaints and Reports headache(s) Eyes: Eyes: Reports no additional eye complaints and Denies change in vision Cardiovascular: Cardiovascular: Reports no additional cardiovascular complaints, Denies chest pain, Denies chest pain at rest and Denies chest pain with activity Respiratory: Respiratory: Reports no additional respiratory complaints and Denies chest congestion Gastrointestinal: Gastrointestinal: Reports no additional gastrointestinal complaints Genitourinary: Genitourinary: Reports no additional male genitourinary complaints Neurologic: Reports dizziness (Mostly with movement not when laying still. ) Exam Const: General: cooperative, comfortable, no acute distress, alert, awake and Physically active Nutritional Appearance: average body habitus Resp: Effort & Inspection: normal respiratory effort Auscultation: clear to auscultation bilaterally Cardio: Rate: regular rate Heart sounds: S1 normal heart sound present and S2 normal heart sound present Neuro: General: oriented to person, oriented to place and oriented to time Cranial nerves: Yes CN's II-XII intact bilaterally, Yes Equal, round and reactive pupils present, Yes facial symmetry, Yes Midline tongue present and Yes Ability to bilaterally rotate head present (causes dizziness) Motor exam (ne
[2020-05-06] MEDS: ACETAMINOPHEN/CODEINE (*CRX) 300/30 MG TABLET 1 TAB PO (14:38)
[2020-05-06] MEDS: DONEPEZIL HCL 5 MG TABLET 10 MG PO (20:18)
[2020-05-07] VITALS (8 sets, daily range): BP systolic 96–158; BP diastolic 52–114; PULSE 55–80; RESP 18; TEMP 36.4–36.8; O2SAT 92–98
[2020-05-07] MEDS: MECLIZINE HCL 25 MG TABLET PO ×3 (09:54→16:35)
[2020-05-07] MEDS: ASPIRIN 325 MG ENTERIC TABLET PO (09:54)
[2020-05-07] MEDS: ACETAMINOPHEN 500 MG TABLET 1000 MG PO ×2 (09:54→20:34)
[2020-05-07] MEDS: DOCUSATE SODIUM 100 MG CAPSULE PO ×2 (09:55→16:34)
[2020-05-07] MEDS: FERROUS SULFATE 324 MG TABLET PO ×2 (09:55→16:34)
[2020-05-07] MEDS: CITALOPRAM HYDROBROMIDE 20 MG TABLET PO (09:55)
[2020-05-07] MEDS: lisinopriL 10 MG TABLET PO (09:55)
[2020-05-07] MEDS: PANTOPRAZOLE 40 MG TABLET PO (09:55)
--- NOTE | 2020-05-07 13:57 | WPDPN ---
Progress Note: A&P Assessment and Plan (1) Dizziness and giddiness: Code(s): R42 - Dizziness and giddiness Status: Acute Assessment and Plan: No improvement Possible causes vertigo versus CVA versus ataxia CT of the head no acute findings Carotid ultrasound to 50% bilateral stenosis Echo indicates grade 1 diastolic dysfunction Antivert started MRI scheduled for tomorrow Unable to rehab patient due to dizziness Started orthostatics Vitamin B12, TSH pending otoscope exam of ear negative (2) Dementia: Code(s): F03.90 - Unspecified dementia without behavioral disturbance Status: Chronic Assessment and Plan: Continue donepezil (3) Hypertension: Code(s): I10 - Essential (primary) hypertension Status: Chronic Assessment and Plan: Slightly elevated Will possibly start antihypertension medication (4) Headache: Code(s): R51.9 - Headache, unspecified Status: Acute Assessment and Plan: Resolved We will continue to monitor Review of Systems Review of Systems: All systems reviewed & are unremarkable except as noted in HPI and below (10 point system review) Exam Narrative: Exam Narrative: GENERAL: This is a well-nourished, well-developed patient, in no apparent distress. HEAD: normocephalic, atraumatic. EYES: PERRL. Sclera clear/white. Vision is grossly intact. EARS: External ears normal, auditory canals clear and without drainage, TMs normal without perforation. Hearing grossly intact. NOSE: External nose normal with no obvious nasal discharge, nares without redness, no rhinorrhea. THROAT: Mucous membranes moist, posterior pharynx clear. NECK: Neck supple, non-tender without lymphadenopathy, masses or thyromegaly. CARDIOVASCULAR: Regular rate and rhythm without murmurs, gallops, or rubs. RESPIRATORY: Clear to auscultation. Breath sounds equal bilaterally. No wheezes, rales, or rhonchi. GASTROINTESTINAL: Abdomen soft, non-tender, nondistended. Bowel sounds are active. No hepato-splenomegaly, or palpable masses. No guarding. SKIN: warm, intact with no suspicious lesions or rash, good texture and turgor. NEURO: awake, alert, and oriented to person, place and time. There were no obvious focal neurologic abnormalities. EXTREMITIES: Normal range of motion. No edema. No calf tenderness. Negative Homans sign bilaterally. BACK: Nontender without deformity or crepitance. No flank tenderness. Objective Data Vital Signs Vital Signs: Vital Signs - 24 hr 05/06/20 16:00 05/06/20 20:00 05/07/20 00:00 Temperature 98.6 F 97.9 F 97.5 F L Pulse Rate 62 65 80 Respiratory Rate 18 20 18 Blood Pressure 184/96 H 114/65 128/76 Pulse Oximetry 96 95 93 05/07/20 04:00 05/07/20 07:40 05/07/20 12:10 Temperature 98.3 F 97.9 F 97.9 F Pulse Rate 72 63 61 Respiratory Rate 18 18 18 Blood Pressure 138/70 158/91 H 96/52 L Pulse Oximetry 92 92 95 05/07/20 13:35 Temperature Pulse Rate Respiratory Rate Blood Pressure 106/60 Pulse Oximetry Intake/Output Intake/Output: Intake & Output 05/04/20 05/05/20 05/06/20 05/07/20 23:59 23:59 23:59 23:59 Intake Total 730 1160 810 Output Total 575 1400 700 Balance 155 -240 110 Meds/Results Medications: Active Medications Generic Name Dose Route Start Last Admin Trade Name Freq PRN Reason Stop Dose Admin Acetaminophen 1,000 mg 05/05/20 18:10 05/07/20 09:54 Acetaminophen 500 Mg Tablet PO 1,000 mg Q6H PRN Administration Mild Pain (1-3) or Fever Aspirin 325 mg 05/06/20 09:00 05/07/20 09:54 Aspirin 325 Mg Enteric Tablet PO 325 mg QAM ERIKA Administration Citalopram Hydrobromide 20 mg 05/06/20 09:00 05/07/20 09:55 Citalopram Hydrobromide 20 Mg Tablet PO 20 mg DAILY ERIKA Administration Docusate Sodium 100 mg 05/05/20 17:00 05/07/20 09:55 Docusate Sodium 100 Mg Capsule PO 100 mg BID ERIKA Administration Donepezil HCl 10 mg 05/05/20 21:00 05/06/20
[2020-05-07] MEDS: DONEPEZIL HCL 5 MG TABLET 10 MG PO (21:31)
[2020-05-08] VITALS (11 sets, daily range): BP systolic 95–183; BP diastolic 49–116; PULSE 56–61; RESP 16–20; TEMP 36.2–37; O2SAT 94–98
[2020-05-08 05:59] LABS: Hematocrit 38.3 % (37.0-46.0); Hemoglobin 12.7 g/dL (12.4-15.3); Mean Corpuscular HGB Conc 33.2 g/dL (32.0-36.0); Mean Corpuscular Hemoglobin 32.5 pg (27.0-31.0); Mean Platelet Volume 9.7 fl (8.7-11.0); Platelet Count Result 263 K/mm3 (150-420); Red Blood Count 3.91 M/mm3 (4.70-6.10); Red Cell Distribution Width 12.7 % (11.6-14.4); White Blood Count 6.7 K/mm3 (4.8-10.8)
[2020-05-08 06:45] LABS: Alanine Aminotransferase 20 U/L (16-63); Albumin Level 3.3 g/dL (3.4-5.0); Alkaline Phosphatase 68 U/L (46-116); Anion Gap 9 mmol/L (8-16); Aspartate Amino Transferase 11 U/L (15-37); Bilirubin,Total 0.6 mg/dL (0.00-1.00); Blood Urea Nitrogen 16 mg/dL (7-18); Calcium 8.6 mg/dL (8.5-10.1); Carbon Dioxide 27 mmol/L (21-32); Chloride 100 mmol/L (98-108); Estimated CRCL calculation 41 ml/min; Estimated Glomerular Filt Rate 59; Glucose 93 mg/dL (70-99); Magnesium 2.2 mg/dL (1.8-2.4); Osmolality Calculated 283 mOsm/kg (285-295); Potassium 4.1 mmol/L (3.5-5.1); Sodium 136 mmol/L (136-145); Total Protein 6.4 g/dL (6.4-8.2); Vitamin B12 596 pg/mL (193-986)
[2020-05-08 07:08] LABS: Folic Acid > 20.0 ng/mL (8.6->20)
[2020-05-08 07:33] LABS: Thyroid Stimulating Hormone Reflex 3.53 u/IU/mL (0.36-3.74)
[2020-05-08] MEDS: ACETAMINOPHEN 500 MG TABLET 1000 MG PO ×2 (09:26→16:19)
--- NOTE | 2020-05-08 09:30 | PC.NURSE ---
Blood pressure taken right after patient sat up and then 15 minutes after patient had been sitting up. Patients blood pressure dropped significantly after sitting up for 15 minutes. Patient reports headache with blood pressure drop. [employer] PROGRAMMER and MD notified of blood pressure.
[2020-05-08] MEDS: lisinopriL 10 MG TABLET PO (10:59)
[2020-05-08] MEDS: MECLIZINE HCL 25 MG TABLET PO ×3 (10:59→16:19)
[2020-05-08] MEDS: PANTOPRAZOLE 40 MG TABLET PO (10:59)
[2020-05-08] MEDS: DOCUSATE SODIUM 100 MG CAPSULE PO ×2 (10:59→16:19)
[2020-05-08] MEDS: FERROUS SULFATE 324 MG TABLET PO ×2 (10:59→16:19)
[2020-05-08] MEDS: CITALOPRAM HYDROBROMIDE 20 MG TABLET PO (10:59)
[2020-05-08] MEDS: ASPIRIN 325 MG ENTERIC TABLET PO (10:59)
[2020-05-08] MEDS: amLODIPine BESYLATE 5 MG TABLET PO (11:00)
--- NOTE | 2020-05-08 13:15 | P.PN_ITS ---
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 * Patient will transition to swing bed * Vitamin B12, TSH within normal limit * otoscope exam of ear negative <Billei Dubois HIRAM-C - Last Filed: 05/08/20 13:37> (2) Dementia: Code(s): F03.90 - Unspecified dementia without behavioral disturbance <Billie Dubois HIRAM-C - Last Filed: 05/08/20 13:37> Status: Chronic <Billie Dubois HIRAM-C - Last Filed: 05/08/20 13:37> Assessment and Plan: * Continue donepezil <Billie Dubois HIRAM-C - Last Filed: 05/08/20 13:37> (3) Hypertension: Code(s): I10 - Essential (primary) hypertension <Billie Dubois HIRAM-C - Last Filed: 05/08/20 13:37> Status: Chronic <Billie Dubois HIRAM-C - Last Filed: 05/08/20 13:37> Assessment and Plan: * elevated added Norvasc <Billie Dubois RETOUCHING OPERATOR-C - Last Filed: 05/08/20 13:37> (4) Headache: Code(s): R51.9 - Headache, unspecified <Billie Dubois RETOUCHING OPERATOR-C - Last Filed: 05/08/20 13:37> Status: Acute <Billie Dubois HIRAM-C - Last Filed: 05/08/20 13:37> Assessment and Plan: * Secondary CVA * We will continue to monitor <Billie Dubois RETOUCHING OPERATOR-C - Last Filed: 05/08/20 13:37> Review of Systems Review of Systems: All systems reviewed & are unremarkable except as noted in HPI and below (10 point system review) <REYNA Steve - Last Filed: 05/08/20 13:37> Exam Narrative: Exam Narrative: GENERAL: This is a well-nourished, well-developed patient, in no apparent distress. HEAD: normocephalic, atraumatic. EYES: PERRL. Sclera clear/white. Vision is grossly intact. EARS: External ears normal, auditory canals clear and without drainage, TMs normal without perforation. Hearing grossly intact. NOSE: External nose normal with no obvious nasal discharge, nares without redness, no rhinorrhea. THROAT: Mucous membranes moist, posterior pharynx clear. NECK: Neck supple, non-tender without lymphadenopathy, masses or thyromegaly. CARDIOVASCULAR: Regular rate and rhythm without murmurs, gallops, or rubs. RESPIRATORY: Clear to auscultation. Breath sounds equal bilaterally. No wheezes, rales, or rhonchi. GASTROINTESTINAL: Abdomen soft, non-tender, nondistended. Bowel sounds are active. No hepato-splenomegaly, or palpable masses. No guarding. SKIN: warm, intact with no suspicious lesions or rash, good texture and turgor. NEURO: awake, alert, and oriented to person, place and time. There were no obvious focal neurologic abnormalities. EXTREMITIES: Normal range of motion. No edema. No calf tenderness. Negative Homans sign bilaterally. BACK: Nontender without deformity or crepitance. No flank tenderness. <REYNA Steve - Last Filed: 05/08/20 13:37> Objective Data Vital Signs Vital Signs: Vital Signs - 24 hr 05/07/20 13:35 05/07/20 15:55 05/07/20 20:00 Temperature 97.6 F 98.1 F Pulse Rate 58 L 55 L Respiratory Rate 18 18 Blood Pressure 1
--- NOTE | 2020-05-08 13:15 | WPDPN ---
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 Patient will transition to swing bed Vitamin B12, TSH within normal limit otoscope exam of ear negative <Billie Dubois HIRAM-C - Last Filed: 05/08/20 13:37> (2) Dementia: Code(s): F03.90 - Unspecified dementia without behavioral disturbance <Billie Dubois HIRAM-C - Last Filed: 05/08/20 13:37> Status: Chronic <Billie Dubois ALEXC - Last Filed: 05/08/20 13:37> Assessment and Plan: Continue donepezil <Billie Dubois HIRAM-C - Last Filed: 05/08/20 13:37> (3) Hypertension: Code(s): I10 - Essential (primary) hypertension <Billie Dubois HIRAM-C - Last Filed: 05/08/20 13:37> Status: Chronic <Billie Dubois HIRAM-C - Last Filed: 05/08/20 13:37> Assessment and Plan: elevated added Norvasc <Billie Dubois HIRAM-C - Last Filed: 05/08/20 13:37> (4) Headache: Code(s): R51.9 - Headache, unspecified <Billie Dubois HIRAM-C - Last Filed: 05/08/20 13:37> Status: Acute <Billie Dubois HIRAM-C - Last Filed: 05/08/20 13:37> Assessment and Plan: Secondary CVA We will continue to monitor <Billie Dubois HANDLING TECH-C - Last Filed: 05/08/20 13:37> Review of Systems Review of Systems: All systems reviewed & are unremarkable except as noted in HPI and below (10 point system review) <HIRAM Steve-C - Last Filed: 05/08/20 13:37> Exam Narrative: Exam Narrative: GENERAL: This is a well-nourished, well-developed patient, in no apparent distress. HEAD: normocephalic, atraumatic. EYES: PERRL. Sclera clear/white. Vision is grossly intact. EARS: External ears normal, auditory canals clear and without drainage, TMs normal without perforation. Hearing grossly intact. NOSE: External nose normal with no obvious nasal discharge, nares without redness, no rhinorrhea. THROAT: Mucous membranes moist, posterior pharynx clear. NECK: Neck supple, non-tender without lymphadenopathy, masses or thyromegaly. CARDIOVASCULAR: Regular rate and rhythm without murmurs, gallops, or rubs. RESPIRATORY: Clear to auscultation. Breath sounds equal bilaterally. No wheezes, rales, or rhonchi. GASTROINTESTINAL: Abdomen soft, non-tender, nondistended. Bowel sounds are active. No hepato-splenomegaly, or palpable masses. No guarding. SKIN: warm, intact with no suspicious lesions or rash, good texture and turgor. NEURO: awake, alert, and oriented to person, place and time. There were no obvious focal neurologic abnormalities. EXTREMITIES: Normal range of motion. No edema. No calf tenderness. Negative Homans sign bilaterally. BACK: Nontender without deformity or crepitance. No flank tenderness. <HIRAM Steve-Rozina - Last Filed: 05/08/20 13:37> Objective Data Vital Signs Vital Signs: Vital Signs - 24 hr 05/07/20 13:35 05/07/20 15:55 05/07/20 20:00 Temperature 97.6 F 98.1 F Pulse Rate 58 L 55 L Respiratory Rate 18 18 Blood Pressure 106/60 143/74 H 150/114 H Pulse Oximetry 98 96 05/07/20 20:20 05/08/20 00:00 05/08/20 04:00 Temperature 97.1 F L 97.7 F Pulse Rate 60 58 L Respiratory Rate 20 20 Blood Pressure 150/114 H 117/65 168/81 H Pulse Oximetry 98 96 05/08/20 07:45 Temperature 97.6 F Pulse Rate 56 L Respiratory Rate 18 Blood Pressure 176/116 H Pulse Oximetry 96 <Billie Dubois, HANDLING TECH-C - Last Filed: 05/08/20 13:37> Intake/Output Intake/Output: Intake
--- NOTE | 2020-05-08 14:29 | PC.NURSE ---
Up to BSC, use of gait belt and walker, able to stand some, needed assist to get to position over commode, good BM, assisted to wash and back to bed, side rails up and at the bedside
[2020-05-08] MEDS: DONEPEZIL HCL 5 MG TABLET 10 MG PO (20:03)
[2020-05-09] VITALS: BP 138/76; PULSE 58; RESP 16; TEMP 35.9; O2SAT 94
--- NOTE | 2020-05-09 02:36 | PC.NURSE ---
Pt asked how he got here. Reminded pt he was in [facility]. Pt asked how long was he here. Makes eye contact. Speech clear.
[2020-05-09 04:00] VITALS: BP 124/76; PULSE 62; RESP 16; TEMP 36.3; O2SAT 95
[2020-05-09 05:43] LABS: Hemoglobin 12.6 g/dL (12.4-15.3); Mean Corpuscular HGB Conc 33.2 g/dL (32.0-36.0); Mean Corpuscular Hemoglobin 32.1 pg (27.0-31.0); Mean Corpuscular Volume 96.9 fL (78.0-102.0); Mean Platelet Volume 9.7 fl (8.7-11.0); Platelet Count Result 265 K/mm3 (150-420); Red Blood Count 3.92 M/mm3 (4.70-6.10); Red Cell Distribution Width 12.8 % (11.6-14.4); White Blood Count 7.3 K/mm3 (4.8-10.8)
[2020-05-09 06:00] LABS: Alanine Aminotransferase 19 U/L (16-63); Albumin Level 3.4 g/dL (3.4-5.0); Alkaline Phosphatase 70 U/L (46-116); Anion Gap 11 mmol/L (8-16); Aspartate Amino Transferase 13 U/L (15-37); Bilirubin,Total 0.4 mg/dL (0.00-1.00); Blood Urea Nitrogen 15 mg/dL (7-18); Calcium 8.7 mg/dL (8.5-10.1); Carbon Dioxide 25 mmol/L (21-32); Chloride 99 mmol/L (98-108); Estimated CRCL calculation 44 ml/min; Estimated Glomerular Filt Rate > 60; Glucose 98 mg/dL (70-99); Osmolality Calculated 280 mOsm/kg (285-295); Potassium 4.1 mmol/L (3.5-5.1); Sodium 135 mmol/L (136-145); Total Protein 6.1 g/dL (6.4-8.2)
[2020-05-09 08:00] VITALS: BP 180/86; PULSE 80; RESP 18; TEMP 36.8; O2SAT 97
[2020-05-09 08:02] VITALS: BP 166/82
--- NOTE | 2020-05-09 09:15 | PC.NURSE ---
2 assist with use of gait belt, no assist from patient unable to stand and leaning to right to get from chair to commode, did have a BM and upon moving from commode back to chair was able to stand on his own some, still leans to right, legs elevated on chair and call light in reach of patient
[2020-05-09] MEDS: amLODIPine BESYLATE 5 MG TABLET PO (09:42)
[2020-05-09] MEDS: ASPIRIN 325 MG ENTERIC TABLET PO (09:42)
[2020-05-09] MEDS: PANTOPRAZOLE 40 MG TABLET PO (09:42)
[2020-05-09] MEDS: CLOPIDOGREL BISULFATE 75 MG TABLET PO (09:42)
[2020-05-09] MEDS: FERROUS SULFATE 324 MG TABLET PO (09:43)
[2020-05-09] MEDS: DOCUSATE SODIUM 100 MG CAPSULE PO (09:43)
[2020-05-09] MEDS: MECLIZINE HCL 25 MG TABLET PO (09:43)
[2020-05-09] MEDS: CITALOPRAM HYDROBROMIDE 20 MG TABLET PO (09:43)
[2020-05-09] MEDS: lisinopriL 10 MG TABLET PO (09:43)
--- NOTE | 2020-05-09 12:04 | PM.DS ---
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 Patient will transition to swing bed Vitamin B12, TSH within normal limit otoscope exam of ear negative (2) Dementia: Code(s): F03.90 - Unspecified dementia without behavioral disturbance Status: Chronic Assessment and Plan: Continue donepezil (3) Hypertension: Code(s): I10 - Essential (primary) hypertension Status: Chronic Assessment and Plan: elevated added Norvasc (4) Headache: Code(s): R51.9 - Headache, unspecified Status: Acute Assessment and Plan: Secondary CVA We will continue to monitor DS: Summary Hospital Course Reason for hospitalization: CVA Hospital Course: Ceferino Farias is a 84 year old male who was not the best historian at the time of admission per previous provider note. According to the notes patient became dizzy 2 nights prior to being admitted to the hospital. According to his he has a history of being dizzy but resolved shortly afterwards this particular time it did not resolve. He did have a fall at home. Patient does take tramadol at home. His medication had been changed from previously. Patient CT of the head was negative. 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 Patient has been prescribed statins, aspirin and Plavix. Patient will discharge to a swing bed. He continues to have dizziness while standing or sitting up in a chair. The patient denies SOB, CP, palpitation, extremity numbness, constipation, diarrhea, chills, or fever. Time Spent with Patient Time attestation: Total time spent providing and/or coordinating discharge services: Exam Narrative: Exam Narrative: GENERAL: This is a well-nourished, well-developed patient, in no apparent distress. HEAD: normocephalic, atraumatic. EYES: PERRL. Sclera clear/white. Vision is grossly intact. EARS: External ears normal, auditory canals clear and without drainage, TMs normal without perforation. Hearing grossly intact. NOSE: External nose normal with no obvious nasal discharge, nares without redness, no rhinorrhea. THROAT: Mucous membranes moist, posterior pharynx clear. NECK: Neck supple, non-tender without lymphadenopathy, masses or thyromegaly. CARDIOVASCULAR: Regular rate and rhythm without murmurs, gallops, or rubs. RESPIRATORY: Clear to auscultation. Breath sounds equal bilaterally. No wheezes, rales, or rhonchi. GASTROINTESTINAL: Abdomen soft, non-tender, nondistended. Bowel sounds are active. No hepato-splenomegaly, or palpable masses. No guarding. SKIN: warm, intact with no suspicious lesions or rash, good texture and turgor. NEURO: awake, alert, and oriented to person, place and time. There were no obvious focal neurologic abnormalities. EXTREMITIES: Normal range of motion. No edema. No calf tenderness. Negative Homans sign bilaterally. BACK: Nontender without deformity or crepitance. No flank tenderness. DS: Data Data Completed and Pending Labs on day of discharge: Labs from last 24 hours 05/09/20 05/09/20 05:23 05:23 WBC 7.3 RBC 3.92 L Hgb 12.6 Hct 38.0 MCV 96.9 MCH 32.1 H MCHC 33.2 RDW 12.8 Plt Count 265 MPV 9.7 Sodium 135 L Potassium 4.1 Chloride 99 Carbon Dioxide 25 Anion Gap 11 BUN 15 Creatinine 1.10 Estim Creat Clear Calc 44 Estimated GFR > 60 Glucose 98 Calculated Osmolality 280 L Calcium 8.7 Total Bilirubin 0.4 AST 13 L ALT 19 Alkaline Phosphat
--- NOTE | 2020-05-09 12:50 | PC.NURSE ---
1205 dc from acute care. to go to skilled swing bed for pt. mitzy michelle
== END 2020-05-09 12:05 | disposition swing bed (61) | DRG 66 ==
LOC: CHSED 09:58 → CHS2ND 10:18
PROVIDERS: Nurse Practitioner; Admitting Provider Emergency Medicine; Emergency Provider Emergency Medicine; PCP Family Medicine; Visit Provider Emergency Medicine
DX: R42 Dizziness and giddiness (principal); R27.0 Ataxia, unspecified; I10 Essential (primary) hypertension; M54.9 Dorsalgia, unspecified; K21.9 Gastro-esophageal reflux disease without esophagitis; G89.29 Other chronic pain; R06.00 Dyspnea, unspecified; Z96.653 Presence of artificial knee joint, bilateral; F03.90 Unspecified dementia, unspecified severity, without behavioral disturbance, psychotic disturbance, mood disturbance, and anxiety; Z96.642 Presence of left artificial hip joint; Z87.891 Personal history of nicotine dependence; I63.9 Cerebral infarction, unspecified; I35.1 Nonrheumatic aortic (valve) insufficiency; R51.9 Headache, unspecified
CPT/HCPCS: 36415; 70450; 70553; 71046; 80053; 81003; 82607; 82746; 83735; 84100; 84443; 84484; 85025; 85027; 93005; 93306; 93880; 97110; 97161; 97165; 97530; 97535; 99285; A9270; A9577; J1885

== ENCOUNTER 2020-05-09 12:15 | Inpatient (IN) | payer MEDICARE, SELFPAY ==
[2020-05-09 13:19] VITALS: BMI 28.2
--- NOTE | 2020-05-09 14:16 | PM.DS ---
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 Patient will transition to swing bed Vitamin B12, TSH within normal limit otoscope exam of ear negative <Sond (2) Headache: Code(s): R51.9 - Headache, unspecified Status: Acute Assessment and Plan: Secondary CVA We will continue to monitor (3) GERD (gastroesophageal reflux disease): Code(s): K21.9 - Gastro-esophageal reflux disease without esophagitis Status: Acute Assessment and Plan: Continue home med (4) Altered mental status: Code(s): R41.82 - Altered mental status, unspecified Status: Acute (5) Hypertension: Code(s): I10 - Essential (primary) hypertension Status: Chronic Assessment and Plan: Continue home meds (6) Dementia: Code(s): F03.90 - Unspecified dementia without behavioral disturbance Status: Chronic Assessment and Plan: Continue home meds DS: Summary Hospital Course Reason for hospitalization: Dizziness Hospital Course: Ceferino Farias is a 84 year old male who was not the best historian at the time of admission per previous provider note. According to the notes patient became dizzy 2 nights prior to being admitted to the hospital. According to his he has a history of being dizzy but resolved shortly afterwards this particular time it did not resolve. He did have a fall at home. Patient does take tramadol at home. His medication had been changed from previously. Patient CT of the head was negative. 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 Patient has been prescribed statins, aspirin and Plavix. Patient will discharge to a swing bed. He continues to have dizziness while standing or sitting up in a chair. The patient denies SOB, CP, palpitation, extremity numbness, constipation, diarrhea, chills, or fever. Time Spent with Patient Time attestation: Total time spent providing and/or coordinating discharge services: Exam Narrative: Exam Narrative: GENERAL: This is a well-nourished, well-developed patient, in no apparent distress. HEAD: normocephalic, atraumatic. EYES: PERRL. Sclera clear/white. Vision is grossly intact. EARS: External ears normal, auditory canals clear and without drainage, TMs normal without perforation. Hearing grossly intact. NOSE: External nose normal with no obvious nasal discharge, nares without redness, no rhinorrhea. THROAT: Mucous membranes moist, posterior pharynx clear. NECK: Neck supple, non-tender without lymphadenopathy, masses or thyromegaly. CARDIOVASCULAR: Regular rate and rhythm without murmurs, gallops, or rubs. RESPIRATORY: Clear to auscultation. Breath sounds equal bilaterally. No wheezes, rales, or rhonchi. GASTROINTESTINAL: Abdomen soft, non-tender, nondistended. Bowel sounds are active. No hepato-splenomegaly, or palpable masses. No guarding. SKIN: warm, intact with no suspicious lesions or rash, good texture and turgor. NEURO: awake, alert, and oriented to person, place and time. There were no obvious focal neurologic abnormalities. Steady gait EXTREMITIES: Normal range of motion. No edema. No calf tenderness. Negative Homans sign bilaterally. BACK: Nontender without deformity or crepitance. No flank tenderness. Discharge Plan Discharge Discharge Medications: No Action docusate sodium 100 mg capsule 100 mg PO DAILY RF: 0 donepezil 5 mg tablet 5 mg PO HS RF: 0 pantoprazole 40 mg tablet,delayed release (DR/EC) 40 mg PO D
--- NOTE | 2020-05-09 14:47 | WPDREHABHP ---
H&P: HPI History of Present Illness Date/Time: 05/09/20 14:47 Chief Complaint: Generalized weakness, dizziness Narrative: Ceferino Farias is a 84 year old male who was not the best historian at the time of admission per previous provider note. According to the notes patient became dizzy 2 nights prior to being admitted to the hospital. According to his he has a history of being dizzy but resolved shortly afterwards this particular time it did not resolve. He did have a fall at home. Patient does take tramadol at home. His medication had been changed from previously. Patient CT of the head was negative. 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 Patient has been prescribed statins, aspirin and Plavix. Patient will discharge to a swing bed. He continues to have dizziness while standing or sitting up in a chair. The patient denies SOB, CP, palpitation, extremity numbness, constipation, diarrhea, chills, or fever. Patient admitted in swing bed for rehabilitation due to decreased balance decreased mobility in severe limited function endurant and/or mobility. Review of Systems Review of Systems All systems reviewed & are unremarkable except as noted in HPI and below (10 point system review) [facility] Past Medical History Medical History Anemia Chronic back pain Dementia Dementia Dorsalgia Dyspnea on exertion External hemorrhoid surgical removal in 97 GERD (gastroesophageal reflux disease) GI bleed Hernia, abdominal Surgical repair x's 2 in the 90's Hypertension Surgical History Surgical History History of back surgery History of back surgery 2014 History of bilateral knee replacement History of knee surgery Bilateral Knees 2009 History of left hip replacement History of left hip replacement 2012 Family History Family History Mother Diabetes mellitus Emphysema of lung Father CAD (coronary artery disease) Dementia Father No problems noted. Mother No problems noted. Social History Social History Smoking status: Former smoker Tobacco type: cigars Second hand tobacco smoke exposure: Yes Smoking end date: 04/29/99 Alcohol intake: current Drinks per week: 1 Substance use: never Substance use type: does not use Additional living arrangements comments: . Lives with . 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 Gender identity (if verbalized by the patient): Male Sexual Orientation (if Verbalized by the Patient): Straight or Heterosexual Spiritual care concerns: No Meds Home Medications and Allergies Home Medications Medication Instructions Recorded Confirmed Type tramadol 50 mg tablet 50 mg PO Q6H PRN 05/05/19 05/09/20 History ferrous sulfate 325 mg (65 mg 325 mg PO BID #120 tablet 06/16/19 05/09/20 Rx iron) tablet docusate sodium 100 mg PO DAILY 10/12/19 05/09/20 History citalopram 20 mg tablet 20 mg PO DAILY #90 tablet 04/03/20 05/09/20 Rx donepezil 5 mg PO HS 05/05/20 05/09/20 History pantoprazole 40 mg PO DAILY 05/05/20 05/09/20 History amlodipine [Norvasc] 5 mg PO QAM #30 tablet 05/09/20 05/09/20 Rx aspirin 325 mg PO QAM #30 tablet 05/09/20 05/09/20 Rx clopidogrel 75 mg PO QAM #30 tablet 05/09/20 05/09/20 Rx lisinopril 10 mg PO DAILY #30 tablet 05/09/20 05/09/20 Rx meclizine 25 mg PO TID #30 tablet 05/09/20 05/09/20 Rx polyethylene glycol 3350 [Miralax] 17 g PO QAM PRN #30 ea 05/09/20 05/09/20 Rx Allergies Allergy/AdvReac Type Severity Reaction Status Date / Time cephalexin [From Keflex] Allergy Hives Verified 04/03/20 10:03 diazepam [From Valium] AdvReac Confusion Verified 04/03/20 10:03 Exam Narrative Exam Narrative
[2020-05-09 16:00] VITALS: BP 174/88; PULSE 78; RESP 20; TEMP 36.6; O2SAT 94
[2020-05-09] MEDS: MECLIZINE HCL 25 MG TABLET 50 MG PO (17:17)
[2020-05-09] MEDS: FERROUS SULFATE 324 MG TABLET PO (17:18)
--- NOTE | 2020-05-09 18:19 | PC.NURSE ---
1215 admit to skilled swing bed for pt services due stroke. pt leans to right. hard to follow commands. can feed self. uses urinal. knows when he has to defecate. knows who he is. at times knows his surrounding and times no.
[2020-05-09] MEDS: traMADol HCL (*CRX) 50 MG TABLET PO (19:51)
[2020-05-09] MEDS: DONEPEZIL HCL 5 MG TABLET PO (19:53)
--- NOTE | 2020-05-09 20:38 | PC.NURSE ---
This nurse spoke with to verify patient's code status. stated she is the POA for patient and that he is a DNR. notified.
[2020-05-10] VITALS: BP 130/68; PULSE 58; RESP 18; TEMP 36.6; O2SAT 93
[2020-05-10 08:00] VITALS: BP 158/88; PULSE 80; RESP 20; TEMP 37.3; O2SAT 95
[2020-05-10 08:01] VITALS: BP 126/91
[2020-05-10 08:02] VITALS: BP 112/82
[2020-05-10] MEDS: lisinopriL 10 MG TABLET PO (09:00)
[2020-05-10] MEDS: PANTOPRAZOLE 40 MG TABLET PO (09:00)
[2020-05-10] MEDS: CITALOPRAM HYDROBROMIDE 20 MG TABLET PO (09:01)
[2020-05-10] MEDS: MECLIZINE HCL 25 MG TABLET 50 MG PO ×3 (09:01→17:03)
[2020-05-10] MEDS: amLODIPine BESYLATE 5 MG TABLET PO (09:01)
[2020-05-10] MEDS: CLOPIDOGREL BISULFATE 75 MG TABLET PO (09:01)
[2020-05-10] MEDS: ASPIRIN 325 MG ENTERIC TABLET PO (09:01)
[2020-05-10] MEDS: FERROUS SULFATE 324 MG TABLET PO ×2 (09:01→17:03)
[2020-05-10] MEDS: DOCUSATE SODIUM 100 MG CAPSULE PO (09:01)
[2020-05-10] MEDS: ATORVASTATIN 10 MG TABLET 5 MG PO (09:02)
[2020-05-10 16:00] VITALS: BP 143/81; PULSE 54; RESP 16; TEMP 37; O2SAT 94
[2020-05-10] MEDS: DONEPEZIL HCL 5 MG TABLET PO (20:32)
[2020-05-10] MEDS: traMADol HCL (*CRX) 50 MG TABLET PO (20:32)
[2020-05-11] VITALS: BP 145/85; PULSE 57; RESP 18; TEMP 36.5; O2SAT 93
[2020-05-11 07:38] VITALS: BP 144/80; PULSE 97; RESP 16; TEMP 36.5; O2SAT 95
[2020-05-11] MEDS: CITALOPRAM HYDROBROMIDE 20 MG TABLET PO (08:02)
[2020-05-11] MEDS: MECLIZINE HCL 25 MG TABLET 50 MG PO ×3 (08:02→18:10)
[2020-05-11] MEDS: PANTOPRAZOLE 40 MG TABLET PO (08:02)
[2020-05-11] MEDS: ATORVASTATIN 10 MG TABLET 5 MG PO (08:02)
[2020-05-11] MEDS: CLOPIDOGREL BISULFATE 75 MG TABLET PO (08:02)
[2020-05-11] MEDS: ASPIRIN 325 MG ENTERIC TABLET PO (08:02)
[2020-05-11] MEDS: lisinopriL 10 MG TABLET PO (08:02)
[2020-05-11] MEDS: DOCUSATE SODIUM 100 MG CAPSULE PO (08:03)
[2020-05-11] MEDS: FERROUS SULFATE 324 MG TABLET PO ×2 (08:03→18:10)
[2020-05-11] MEDS: amLODIPine BESYLATE 5 MG TABLET PO (08:03)
--- NOTE | 2020-05-11 08:28 | PM.EVENT ---
Event Note Event Note Event Note: chart and medical records reviewed.
--- NOTE | 2020-05-11 09:08 | PC.NURSE ---
USING SIT TO STAND PATIENT TRANSFERRED FROM BED TO RECLINER CHAIR. SET UP WITH WARM SOAPY WASH BASIN, PATIENT WASHED UPPER BODY AND FACE SHAVED. COMPLAINED OF DIZZINESS UPON SITTING, RECLINED WITH BLE ELEVATED, FEELS BETTER . CLEAN CLOTHES AND BED LINENS APPLIED. CHAIR ALARM IN PLACE. CALL LIGHT IN REACH.
--- NOTE | 2020-05-11 12:15 | PC.NURSE ---
PT EATING LUNCH, CONT TO SIT UP IN RECLINER CHAIR, VISITOR AT BEDSIDE.
[2020-05-11 15:45] VITALS: BP 100/67; PULSE 69; RESP 18; TEMP 36.6; O2SAT 95
[2020-05-11] MEDS: DONEPEZIL HCL 5 MG TABLET PO (20:07)
[2020-05-11 23:52] VITALS: BP 136/71; PULSE 59; RESP 16; TEMP 36.7; O2SAT 96
--- NOTE | 2020-05-12 02:02 | PC.NURSE ---
pt sleeping, no evidence of distress noted, bed alarm on, belongings and call light within reach
[2020-05-12 07:41] VITALS: BP 175/78; PULSE 57; RESP 15; TEMP 36.7; O2SAT 96
[2020-05-12] MEDS: PANTOPRAZOLE 40 MG TABLET PO (08:16)
[2020-05-12] MEDS: amLODIPine BESYLATE 5 MG TABLET PO (08:16)
[2020-05-12] MEDS: MECLIZINE HCL 25 MG TABLET 50 MG PO ×3 (08:16→16:57)
[2020-05-12] MEDS: lisinopriL 10 MG TABLET PO (08:16)
[2020-05-12] MEDS: ATORVASTATIN 10 MG TABLET 5 MG PO (08:16)
[2020-05-12] MEDS: ASPIRIN 325 MG ENTERIC TABLET PO (08:16)
[2020-05-12] MEDS: FERROUS SULFATE 324 MG TABLET PO ×2 (08:16→16:58)
[2020-05-12] MEDS: CLOPIDOGREL BISULFATE 75 MG TABLET PO (08:17)
[2020-05-12] MEDS: CITALOPRAM HYDROBROMIDE 20 MG TABLET PO (08:17)
[2020-05-12 15:25] VITALS: BP 129/79; PULSE 63; RESP 18; TEMP 36.3; O2SAT 95
--- NOTE | 2020-05-12 17:49 | PC.NURSE ---
Responded to bed alarm, assisted to lay down, able to get self up in bed, bed alarm reactivated, call light in reach
[2020-05-12] MEDS: DONEPEZIL HCL 5 MG TABLET PO (20:06)
[2020-05-12] MEDS: diphenhydrAMINE HCl CAP 25 MG CAPSULE 50 MG PO (21:05)
[2020-05-12] MEDS: ACETAMINOPHEN 325 MG TABLET PO (23:07)
[2020-05-12 23:13] VITALS: BP 153/79; PULSE 67; RESP 18; TEMP 36.6; O2SAT 96
--- NOTE | 2020-05-13 02:17 | PC.NURSE ---
pt resting in bed, has been up to urinate approx every hour, confused a&ox1, bed alarm on, belongings and call light within reach
[2020-05-13 07:54] VITALS: BP 184/85; PULSE 60; RESP 16; TEMP 36.1; O2SAT 97
[2020-05-13] MEDS: CITALOPRAM HYDROBROMIDE 20 MG TABLET PO (08:50)
[2020-05-13] MEDS: MECLIZINE HCL 25 MG TABLET 50 MG PO ×3 (08:50→16:48)
[2020-05-13] MEDS: DOCUSATE SODIUM 100 MG CAPSULE PO (08:50)
[2020-05-13] MEDS: ATORVASTATIN 10 MG TABLET 5 MG PO (08:51)
[2020-05-13] MEDS: CLOPIDOGREL BISULFATE 75 MG TABLET PO (08:51)
[2020-05-13] MEDS: FERROUS SULFATE 324 MG TABLET PO ×2 (08:51→16:48)
[2020-05-13] MEDS: lisinopriL 10 MG TABLET PO (08:51)
[2020-05-13] MEDS: amLODIPine BESYLATE 5 MG TABLET PO (08:51)
[2020-05-13] MEDS: PANTOPRAZOLE 40 MG TABLET PO (08:51)
[2020-05-13] MEDS: ASPIRIN 325 MG ENTERIC TABLET PO (08:51)
[2020-05-13 16:00] VITALS: BP 140/84; PULSE 60; RESP 18; TEMP 36.4; O2SAT 98
[2020-05-13] MEDS: ACETAMINOPHEN 325 MG TABLET PO (20:58)
[2020-05-13] MEDS: DONEPEZIL HCL 5 MG TABLET PO (21:01)
[2020-05-14 00:50] VITALS: BP 106/68; PULSE 60; RESP 16; TEMP 36.4; O2SAT 96
[2020-05-14 07:43] VITALS: BP 190/92; PULSE 68; RESP 20; TEMP 36.9; O2SAT 99
[2020-05-14] MEDS: PANTOPRAZOLE 40 MG TABLET PO (08:19)
[2020-05-14] MEDS: CITALOPRAM HYDROBROMIDE 20 MG TABLET PO (08:19)
[2020-05-14] MEDS: MECLIZINE HCL 25 MG TABLET 50 MG PO ×3 (08:19→17:00)
[2020-05-14] MEDS: ASPIRIN 325 MG ENTERIC TABLET PO (08:19)
[2020-05-14] MEDS: DOCUSATE SODIUM 100 MG CAPSULE PO (08:19)
[2020-05-14] MEDS: CLOPIDOGREL BISULFATE 75 MG TABLET PO (08:19)
[2020-05-14] MEDS: FERROUS SULFATE 324 MG TABLET PO ×2 (08:20→17:00)
[2020-05-14] MEDS: amLODIPine BESYLATE 5 MG TABLET PO (08:20)
[2020-05-14] MEDS: ATORVASTATIN 10 MG TABLET 5 MG PO (08:20)
[2020-05-14] MEDS: lisinopriL 10 MG TABLET PO (08:20)
[2020-05-14 09:39] VITALS: BP 117/65; PULSE 60
[2020-05-14 15:41] VITALS: BP 133/73; PULSE 64; RESP 16; TEMP 36.2; O2SAT 95
[2020-05-14] MEDS: traMADol HCL (*CRX) 50 MG TABLET PO (19:14)
[2020-05-14] MEDS: DONEPEZIL HCL 5 MG TABLET PO (20:57)
[2020-05-15] VITALS: BP 133/72; PULSE 61; RESP 18; TEMP 36.8; O2SAT 93
[2020-05-15 08:00] VITALS: BP 151/69; PULSE 62; RESP 18; TEMP 36.6; O2SAT 96
[2020-05-15] MEDS: CITALOPRAM HYDROBROMIDE 20 MG TABLET PO (08:31)
[2020-05-15] MEDS: CLOPIDOGREL BISULFATE 75 MG TABLET PO (08:31)
[2020-05-15] MEDS: PANTOPRAZOLE 40 MG TABLET PO (08:31)
[2020-05-15] MEDS: MECLIZINE HCL 25 MG TABLET 50 MG PO ×3 (08:31→16:36)
[2020-05-15] MEDS: ATORVASTATIN 10 MG TABLET 5 MG PO (08:31)
[2020-05-15] MEDS: FERROUS SULFATE 324 MG TABLET PO ×2 (08:31→16:36)
[2020-05-15] MEDS: amLODIPine BESYLATE 5 MG TABLET PO (08:31)
[2020-05-15] MEDS: DOCUSATE SODIUM 100 MG CAPSULE PO (08:31)
[2020-05-15] MEDS: ASPIRIN 325 MG ENTERIC TABLET PO (08:31)
[2020-05-15] MEDS: lisinopriL 10 MG TABLET PO (08:39)
[2020-05-15 16:00] VITALS: BP 130/73; PULSE 65; RESP 18; TEMP 37.3; O2SAT 96
[2020-05-15] MEDS: traMADol HCL (*CRX) 50 MG TABLET PO (18:06)
[2020-05-15] MEDS: DONEPEZIL HCL 5 MG TABLET PO (20:40)
[2020-05-16] VITALS: BP 129/77; PULSE 61; RESP 20; TEMP 36.4; O2SAT 93
[2020-05-16 08:00] VITALS: BP 132/86; PULSE 62; RESP 16; TEMP 36.7; O2SAT 93
[2020-05-16] MEDS: MECLIZINE HCL 25 MG TABLET 50 MG PO ×3 (08:36→16:57)
[2020-05-16] MEDS: lisinopriL 10 MG TABLET PO (08:36)
[2020-05-16] MEDS: FERROUS SULFATE 324 MG TABLET PO ×2 (08:36→16:57)
[2020-05-16] MEDS: PANTOPRAZOLE 40 MG TABLET PO (08:36)
[2020-05-16] MEDS: amLODIPine BESYLATE 5 MG TABLET PO (08:36)
[2020-05-16] MEDS: CITALOPRAM HYDROBROMIDE 20 MG TABLET PO (08:36)
[2020-05-16] MEDS: ASPIRIN 325 MG ENTERIC TABLET PO (08:36)
[2020-05-16] MEDS: DOCUSATE SODIUM 100 MG CAPSULE PO (08:36)
[2020-05-16] MEDS: ACETAMINOPHEN 325 MG TABLET PO ×2 (08:36→23:15)
[2020-05-16] MEDS: ATORVASTATIN 10 MG TABLET 5 MG PO (08:37)
[2020-05-16] MEDS: CLOPIDOGREL BISULFATE 75 MG TABLET PO (08:37)
[2020-05-16] MEDS: traMADol HCL (*CRX) 50 MG TABLET PO ×2 (12:45→20:35)
[2020-05-16 16:00] VITALS: BP 131/69; PULSE 61; RESP 16; TEMP 36.9; O2SAT 95
[2020-05-16] MEDS: DONEPEZIL HCL 5 MG TABLET PO (20:35)
[2020-05-16 23:46] VITALS: BP 151/75; PULSE 65; RESP 20; TEMP 36.2; O2SAT 97
[2020-05-17] VITALS (7 sets, daily range): BP systolic 80–131; BP diastolic 54–74; PULSE 59–78; RESP 18; TEMP 36.4–36.6; O2SAT 96–98
[2020-05-17] MEDS: FERROUS SULFATE 324 MG TABLET PO ×2 (08:36→16:50)
[2020-05-17] MEDS: MECLIZINE HCL 25 MG TABLET 50 MG PO ×3 (08:36→16:50)
[2020-05-17] MEDS: lisinopriL 10 MG TABLET PO (08:36)
[2020-05-17] MEDS: CLOPIDOGREL BISULFATE 75 MG TABLET PO (08:36)
[2020-05-17] MEDS: ATORVASTATIN 10 MG TABLET 5 MG PO (08:36)
[2020-05-17] MEDS: DOCUSATE SODIUM 100 MG CAPSULE PO (08:36)
[2020-05-17] MEDS: amLODIPine BESYLATE 5 MG TABLET PO (08:37)
[2020-05-17] MEDS: PANTOPRAZOLE 40 MG TABLET PO (08:37)
[2020-05-17] MEDS: ASPIRIN 325 MG ENTERIC TABLET PO (08:37)
[2020-05-17] MEDS: CITALOPRAM HYDROBROMIDE 20 MG TABLET PO (08:37)
--- NOTE | 2020-05-17 10:14 | PM.IMPN ---
Progress Note: A&P Assessment and Plan (1) Weakness: Code(s): R53.1 - Weakness Status: Acute Assessment and Plan: 05/17/2020 Pt is working with PT/OT and making improvements, he is increasing his activity and endurance, still having some balance issues, PT did perform Harish's maneuver with PT and I was informed this did not help, Pt will be working with PT through 05/21/2020 and will be reevaluated at that time for extension of PT or to go home with HH. (2) Dizziness and giddiness: Code(s): R42 - Dizziness and giddiness Status: Acute Assessment and Plan: 05/17/2020 Secondary to CVA, continue Antivert and continue with PT/OT as noted above (3) GERD (gastroesophageal reflux disease): Code(s): K21.9 - Gastro-esophageal reflux disease without esophagitis Status: Acute Assessment and Plan: Continue Protonix (4) Hypertension: Code(s): I10 - Essential (primary) hypertension Status: Chronic Assessment and Plan: Stable Continue lisinopril and Norvasc Vital signs as ordered Will adjust medications as needed (5) Dementia: Code(s): F03.90 - Unspecified dementia without behavioral disturbance Status: Chronic Assessment and Plan: Continue home medication Donepezil (6) Chronic back pain: Code(s): M54.9 - Dorsalgia, unspecified; G89.29 - Other chronic pain Status: Acute Assessment and Plan: Continue pain medication as needed (7) Anemia: Code(s): D64.9 - Anemia, unspecified Status: Chronic Assessment and Plan: Stable Hemoglobin hematocrit at baseline No active bleeding noted (8) CVA (cerebral vascular accident): Code(s): I63.9 - Cerebral infarction, unspecified Status: Acute Assessment and Plan: MRI indicates acute infarct at the right frontal lobe and right side of medulla Started, aspirin and Plavix Will continue PT OT Subjective Date/time seen: 05/17/20 10:14 Pt states he feels pretty good and that nothing is wrong with him that he knows of. States he is doing better with PT and says he believes he will be going home in about a week and he is looking forward to this. States he has a good appetite, no BOLANOS, no SOB or CP, no abdominal issues, admits to walking with PT and noticing that he is off balance, admits to being a little dizzy when standing up but this fades away after a little while. Review of Systems Constitutional: Constitutional: Reports no additional constitutional complaints, Denies body ache(s), Denies chills and Denies fever(s) Cardiovascular: Cardiovascular: Reports no additional cardiovascular complaints, Denies chest pain, Denies chest pain at rest and Denies chest pain with activity Respiratory: Respiratory: Reports no additional respiratory complaints, Denies chest congestion, Denies dyspnea and Denies dyspnea on exertion Gastrointestinal: Gastrointestinal: Reports no additional gastrointestinal complaints Genitourinary: Genitourinary: Reports no additional male genitourinary complaints Musculoskeletal: Comments: admits to doing better with PT and realizes he has some difficulty walking but that this is improving. Neurologic: Reports dizziness (with standing but this improves after a little while) Exam Const: General: cooperative, comfortable, no acute distress, alert, awake and Physically active Nutritional Appearance: average body habitus Limitations: no limitations (Positional dizziness) Resp: Effort & Inspection: normal respiratory effort Auscultation: clear to auscultation bilaterally Cardio: Rate: regular rate Heart sounds: S1 normal heart sound present, S2 normal heart sound present, no click, no gallops, no murmurs and no rubs GI: GI Palp: Yes Soft to palpation and No Tenderness to palpation present (GI) Auscultation: Hypoactive bowel sounds present Neuro: General: oriented to person, oriented to place, No oriented to time (thought it
[2020-05-17] MEDS: traMADol HCL (*CRX) 50 MG TABLET PO (20:55)
[2020-05-17] MEDS: DONEPEZIL HCL 5 MG TABLET PO (22:06)
[2020-05-18 08:00] VITALS: BP 159/82; PULSE 67; RESP 18; TEMP 36.8; O2SAT 98
--- NOTE | 2020-05-18 08:09 | PM.EVENT ---
Event Note Event Note Event Note: Pt had episode of soft to low BP Sys 90s and 80 yesterday while working with PT/OT. Discontinued Amlodipine but continued Lisinopril. Will continue to monitor VS.
[2020-05-18] MEDS: MECLIZINE HCL 25 MG TABLET 50 MG PO ×3 (08:42→17:00)
[2020-05-18] MEDS: DOCUSATE SODIUM 100 MG CAPSULE PO (08:42)
[2020-05-18] MEDS: CITALOPRAM HYDROBROMIDE 20 MG TABLET PO (08:42)
[2020-05-18] MEDS: ASPIRIN 325 MG ENTERIC TABLET PO (08:42)
[2020-05-18] MEDS: PANTOPRAZOLE 40 MG TABLET PO (08:42)
[2020-05-18] MEDS: ATORVASTATIN 10 MG TABLET 5 MG PO (08:42)
[2020-05-18] MEDS: lisinopriL 10 MG TABLET PO (08:43)
[2020-05-18] MEDS: FERROUS SULFATE 324 MG TABLET PO ×2 (08:43→17:00)
[2020-05-18] MEDS: CLOPIDOGREL BISULFATE 75 MG TABLET PO (08:43)
[2020-05-18 16:00] VITALS: BP 138/76; PULSE 63; RESP 18; TEMP 36.9; O2SAT 95
[2020-05-18] MEDS: DONEPEZIL HCL 5 MG TABLET PO (20:23)
--- NOTE | 2020-05-18 21:09 | PC.NURSE ---
Patient requested HS snack, ham sandwich and bennie mist given. Patient ate 100% and drank 240ml. Laying down at this time.
[2020-05-19] VITALS: BP 120/70; PULSE 64; RESP 20; TEMP 36.2; O2SAT 96
[2020-05-19 05:28] LABS: Basophils Absolute Auto 0.04 K/mm3 (0.00-0.10); Basophils Percent Auto 0.5 % (0.0-1.0); Eosinophils Absolute Auto 0.22 K/mm3 (0.02-0.50); Eosinophils Percent Auto 2.8 % (1.0-6.0); Hemoglobin 13.3 g/dL (12.4-15.3); Immature Granulocyte Absolute 0.05 K/mm3 (0.00-0.00); Immature Granulocyte Percent A 0.6 % (0.0-0.0); Lymphocytes Absolute Auto 1.55 K/mm3 (1.10-4.50); Lymphocytes Percent Auto 19.4 % (18.0-42.0); Mean Corpuscular HGB Conc 32.4 g/dL (32.0-36.0); Mean Corpuscular Hemoglobin 31.7 pg (27.0-31.0); Mean Corpuscular Volume 97.6 fL (78.0-102.0); Mean Platelet Volume 9.5 fl (8.7-11.0); Monocytes Absolute Auto 0.58 K/mm3 (0.10-0.90); Monocytes Percent Auto 7.3 % (2.0-11.0); Neutrophils Absolute Auto 5.5 K/mm3 (1.7-7.2); Neutrophils Percent Auto 69.4 % (50.0-70.0); Platelet Count Result 246 K/mm3 (150-420); Red Cell Distribution Width 11.9 % (11.6-14.4)
[2020-05-19 05:44] LABS: Alanine Aminotransferase 18 U/L (16-63); Albumin Level 3.5 g/dL (3.4-5.0); Alkaline Phosphatase 84 U/L (46-116); Anion Gap 7 mmol/L (8-16); Aspartate Amino Transferase < 10 U/L (15-37); Bilirubin,Total 0.3 mg/dL (0.00-1.00); Blood Urea Nitrogen 30 mg/dL (7-18); Calcium 8.9 mg/dL (8.5-10.1); Carbon Dioxide 27 mmol/L (21-32); Chloride 102 mmol/L (98-108); Estimated CRCL calculation 35 ml/min; Estimated Glomerular Filt Rate 49; Glucose 97 mg/dL (70-99); Osmolality Calculated 288 mOsm/kg (285-295); Potassium 4.8 mmol/L (3.5-5.1); Sodium 136 mmol/L (136-145); Total Protein 6.7 g/dL (6.4-8.2)
[2020-05-19 07:41] VITALS: BP 132/73; PULSE 58; RESP 20; TEMP 36.2; O2SAT 96
[2020-05-19] MEDS: DOCUSATE SODIUM 100 MG CAPSULE PO (09:06)
[2020-05-19] MEDS: ATORVASTATIN 10 MG TABLET 5 MG PO (09:06)
[2020-05-19] MEDS: CITALOPRAM HYDROBROMIDE 20 MG TABLET PO (09:06)
[2020-05-19] MEDS: lisinopriL 10 MG TABLET PO (09:06)
[2020-05-19] MEDS: ASPIRIN 325 MG ENTERIC TABLET PO (09:06)
[2020-05-19] MEDS: MECLIZINE HCL 25 MG TABLET 50 MG PO ×3 (09:07→16:31)
[2020-05-19] MEDS: PANTOPRAZOLE 40 MG TABLET PO (09:07)
[2020-05-19] MEDS: FERROUS SULFATE 324 MG TABLET PO ×2 (09:07→16:31)
[2020-05-19] MEDS: CLOPIDOGREL BISULFATE 75 MG TABLET PO (09:07)
--- NOTE | 2020-05-19 14:24 | PM.EVENT ---
Event Note Event Note Event Note: Informed by PT that Pt had a BP of 99 systolic and was unable to stand for a long time and informed her that there was something wrong with his head that he was unable to describe. I went to the Pt's room to assist and observe his interaction with PT. New BP obtained while sitting and it was only slightly higher. After standing Pt was having similar issues with this head. Obtained BP while standing 74/50 with HR 60. After sitting Pt again and rechecking his BP his systolic was about 94. I DC'ed his Lisinopril. Will see how Pt does in the AM. No other complaints at this time. Sounds like PT is going to do basic standing and sitting with the Pt and see how he tolerates this in the future.
[2020-05-19 16:00] VITALS: BP 140/84; PULSE 64; RESP 18; TEMP 36.9; O2SAT 96
[2020-05-19] MEDS: ACETAMINOPHEN 325 MG TABLET PO (17:45)
[2020-05-19] MEDS: traMADol HCL (*CRX) 50 MG TABLET PO (17:46)
[2020-05-19] MEDS: DONEPEZIL HCL 5 MG TABLET PO (20:14)
--- NOTE | 2020-05-19 20:47 | PC.NURSE ---
Snack was requested by patient, ham sandwich, ate 100%. Pain has improved to back on reassessment. 05/08 currently.
[2020-05-20] VITALS: BP 107/63; PULSE 64; RESP 18; TEMP 36.4; O2SAT 93
[2020-05-20 07:15] VITALS: BP 168/69; PULSE 62; RESP 18; TEMP 36.6; O2SAT 97
[2020-05-20] MEDS: MECLIZINE HCL 25 MG TABLET 50 MG PO ×3 (09:40→17:41)
[2020-05-20] MEDS: CITALOPRAM HYDROBROMIDE 20 MG TABLET PO (09:40)
[2020-05-20] MEDS: ASPIRIN 325 MG ENTERIC TABLET PO (09:40)
[2020-05-20] MEDS: CLOPIDOGREL BISULFATE 75 MG TABLET PO (09:40)
[2020-05-20] MEDS: DOCUSATE SODIUM 100 MG CAPSULE PO (09:41)
[2020-05-20] MEDS: PANTOPRAZOLE 40 MG TABLET PO (09:41)
[2020-05-20] MEDS: ATORVASTATIN 10 MG TABLET 5 MG PO (09:41)
[2020-05-20] MEDS: FERROUS SULFATE 324 MG TABLET PO ×2 (09:41→17:41)
[2020-05-20 16:00] VITALS: BP 163/83; PULSE 62; RESP 18; TEMP 36.8; O2SAT 96
[2020-05-20] MEDS: DONEPEZIL HCL 5 MG TABLET PO (20:22)
[2020-05-21] VITALS: BP 117/67; PULSE 66; RESP 18; TEMP 36.6; O2SAT 93
[2020-05-21 05:37] LABS: Hematocrit 40.3 % (37.0-46.0); Hemoglobin 13.2 g/dL (12.4-15.3); Mean Corpuscular HGB Conc 32.8 g/dL (32.0-36.0); Mean Corpuscular Hemoglobin 31.7 pg (27.0-31.0); Mean Corpuscular Volume 96.9 fL (78.0-102.0); Mean Platelet Volume 9.5 fl (8.7-11.0); Platelet Count Result 240 K/mm3 (150-420); Red Blood Count 4.16 M/mm3 (4.70-6.10); Red Cell Distribution Width 11.9 % (11.6-14.4); White Blood Count 7.7 K/mm3 (4.8-10.8)
[2020-05-21 05:51] LABS: Anion Gap 7 mmol/L (8-16); Blood Urea Nitrogen 30 mg/dL (7-18); Calcium 8.9 mg/dL (8.5-10.1); Carbon Dioxide 27 mmol/L (21-32); Chloride 101 mmol/L (98-108); Estimated CRCL calculation 37 ml/min; Estimated Glomerular Filt Rate 52; Glucose 99 mg/dL (70-99); Osmolality Calculated 286 mOsm/kg (285-295); Potassium 4.5 mmol/L (3.5-5.1); Sodium 135 mmol/L (136-145)
[2020-05-21 07:55] VITALS: BP 145/79; PULSE 59; RESP 16; TEMP 36.7; O2SAT 94
[2020-05-21] MEDS: CLOPIDOGREL BISULFATE 75 MG TABLET PO (09:03)
[2020-05-21] MEDS: ATORVASTATIN 10 MG TABLET 5 MG PO (09:03)
[2020-05-21] MEDS: CITALOPRAM HYDROBROMIDE 20 MG TABLET PO (09:03)
[2020-05-21] MEDS: FERROUS SULFATE 324 MG TABLET PO ×2 (09:03→16:42)
[2020-05-21] MEDS: ASPIRIN 325 MG ENTERIC TABLET PO (09:03)
[2020-05-21] MEDS: DOCUSATE SODIUM 100 MG CAPSULE PO (09:03)
[2020-05-21] MEDS: MECLIZINE HCL 25 MG TABLET 50 MG PO ×3 (09:03→16:42)
[2020-05-21] MEDS: PANTOPRAZOLE 40 MG TABLET PO (09:04)
--- NOTE | 2020-05-21 13:22 | PM.EVENT ---
Event Note Event Note Event Note: Patient requires a wheeled walker to perform ADLs in the home due to CVA with generalized weakness. Patient is unable to perform ADLs using a cane. Patient requires a hospital bed due to CVA which requires positioning of the body in ways not feasible with any ordinary bed in order to prevent aspiration. Patient also requires a trapeze for hospital bed to prevent aspiration, change body position for other medical reasons or to get out of.
[2020-05-21 15:34] VITALS: BP 135/82; PULSE 67; RESP 18; TEMP 36.3; O2SAT 100
[2020-05-21 20:00] VITALS: BP 117/79; PULSE 70; RESP 18; TEMP 36.6; O2SAT 94
[2020-05-21] MEDS: DONEPEZIL HCL 5 MG TABLET PO (20:48)
--- NOTE | 2020-05-21 20:49 | PC.NURSE ---
Pt remains sitting up in bedside chair watching tv. call salazar in reach, no needs at this time.
[2020-05-21] MEDS: traMADol HCL (*CRX) 50 MG TABLET PO (23:37)
[2020-05-21 23:40] VITALS: BP 128/80; PULSE 76; RESP 20; TEMP 36.8; O2SAT 93
[2020-05-22 00:40] VITALS: TEMP 36.9
--- NOTE | 2020-05-22 02:50 | PC.NURSE ---
pt sleeping, left undisturbed. call salazar in reach. bed alarm on.
--- NOTE | 2020-05-22 03:53 | PC.NURSE ---
pt awake to use urinal. no complaints or changes in condition at this time.
--- NOTE | 2020-05-22 04:47 | PC.NURSE ---
pt sleeping, call salazar in reach. urinal emptied
--- NOTE | 2020-05-22 06:18 | PC.NURSE ---
pt sleeping, no change in condition. left undisturbed. call salazar in reach.
--- NOTE | 2020-05-22 07:05 | PC.NURSE ---
report to LEANNE RN
--- NOTE | 2020-05-22 07:11 | PM.EVENT ---
Event Note Event Note Event Note: patient bp is better controlled with out BP medication will start a start dose of midodrine to see if his dizziness improves.
[2020-05-22 07:36] VITALS: BP 164/91; PULSE 58; RESP 18; TEMP 36.2; O2SAT 95
[2020-05-22] MEDS: DOCUSATE SODIUM 100 MG CAPSULE PO (08:55)
[2020-05-22] MEDS: MIDODRINE HCL 2.5 MG TABLET PO ×3 (08:56→16:54)
[2020-05-22] MEDS: FERROUS SULFATE 324 MG TABLET PO ×2 (08:56→16:54)
[2020-05-22] MEDS: PANTOPRAZOLE 40 MG TABLET PO (08:56)
[2020-05-22] MEDS: CITALOPRAM HYDROBROMIDE 20 MG TABLET PO (08:56)
[2020-05-22] MEDS: CLOPIDOGREL BISULFATE 75 MG TABLET PO (08:56)
[2020-05-22] MEDS: MECLIZINE HCL 25 MG TABLET 50 MG PO ×3 (08:56→16:55)
[2020-05-22] MEDS: ATORVASTATIN 10 MG TABLET 5 MG PO (08:56)
[2020-05-22] MEDS: ASPIRIN 325 MG ENTERIC TABLET PO (08:56)
[2020-05-22 15:38] VITALS: BP 105/81; PULSE 69; RESP 18; TEMP 36.7; O2SAT 95
[2020-05-22 20:00] VITALS: BP 157/78
[2020-05-22 20:01] VITALS: BP 138/82
[2020-05-22 20:02] VITALS: BP 115/63
[2020-05-22] MEDS: traMADol HCL (*CRX) 50 MG TABLET PO (20:34)
[2020-05-22] MEDS: DONEPEZIL HCL 5 MG TABLET PO (20:36)
[2020-05-23] VITALS (8 sets, daily range): BP systolic 106–159; BP diastolic 65–95; PULSE 62–68; RESP 18; TEMP 36.4–36.6; O2SAT 92–98
[2020-05-23] MEDS: DOCUSATE SODIUM 100 MG CAPSULE PO (08:51)
[2020-05-23] MEDS: ATORVASTATIN 10 MG TABLET 5 MG PO (08:51)
[2020-05-23] MEDS: CLOPIDOGREL BISULFATE 75 MG TABLET PO (08:52)
[2020-05-23] MEDS: FERROUS SULFATE 324 MG TABLET PO ×2 (08:52→16:57)
[2020-05-23] MEDS: MECLIZINE HCL 25 MG TABLET 50 MG PO ×3 (08:52→16:57)
[2020-05-23] MEDS: PANTOPRAZOLE 40 MG TABLET PO (08:52)
[2020-05-23] MEDS: CITALOPRAM HYDROBROMIDE 20 MG TABLET PO (08:52)
[2020-05-23] MEDS: MIDODRINE HCL 2.5 MG TABLET PO (08:52)
[2020-05-23] MEDS: ASPIRIN 325 MG ENTERIC TABLET PO (08:52)
[2020-05-23] MEDS: MIDODRINE HCL 2.5 MG TABLET 5 MG PO ×2 (13:18→16:57)
[2020-05-23] MEDS: DONEPEZIL HCL 5 MG TABLET PO (20:55)
--- NOTE | 2020-05-24 01:54 | PC.NURSE ---
pt given dwayne vanessa, denies any other needs at this time, call light and belongings within reach
[2020-05-24 08:00] VITALS: BP 104/78; BP 108/54; PULSE 78; RESP 18; TEMP 36; O2SAT 97
[2020-05-24 08:01] VITALS: BP 134/76; PULSE 64; RESP 20; O2SAT 97
[2020-05-24] MEDS: MIDODRINE HCL 2.5 MG TABLET 5 MG PO ×3 (08:55→17:01)
[2020-05-24] MEDS: MECLIZINE HCL 25 MG TABLET 50 MG PO ×3 (08:55→17:00)
[2020-05-24] MEDS: ATORVASTATIN 10 MG TABLET 5 MG PO (08:55)
[2020-05-24] MEDS: FERROUS SULFATE 324 MG TABLET PO ×2 (08:56→17:00)
[2020-05-24] MEDS: ASPIRIN 325 MG ENTERIC TABLET PO (08:57)
[2020-05-24] MEDS: PANTOPRAZOLE 40 MG TABLET PO (08:57)
[2020-05-24] MEDS: CLOPIDOGREL BISULFATE 75 MG TABLET PO (08:57)
[2020-05-24] MEDS: DOCUSATE SODIUM 100 MG CAPSULE PO (08:57)
[2020-05-24] MEDS: CITALOPRAM HYDROBROMIDE 20 MG TABLET PO (08:57)
[2020-05-24 16:00] VITALS: BP 113/75; PULSE 71; RESP 16; TEMP 36.7; O2SAT 97
[2020-05-24 20:00] VITALS: BP 136/71; PULSE 74; RESP 18; TEMP 36.7; O2SAT 96
[2020-05-24] MEDS: DONEPEZIL HCL 5 MG TABLET PO (21:48)
[2020-05-25] VITALS (7 sets, daily range): BP systolic 125–166; BP diastolic 71–110; PULSE 58–74; RESP 16–18; TEMP 36.3–36.9; O2SAT 95–98
[2020-05-25] MEDS: PANTOPRAZOLE 40 MG TABLET PO (09:00)
[2020-05-25] MEDS: MECLIZINE HCL 25 MG TABLET 50 MG PO ×3 (09:00→16:54)
[2020-05-25] MEDS: ASPIRIN 325 MG ENTERIC TABLET PO (09:01)
[2020-05-25] MEDS: CITALOPRAM HYDROBROMIDE 20 MG TABLET PO (09:01)
[2020-05-25] MEDS: ATORVASTATIN 10 MG TABLET 5 MG PO (09:01)
[2020-05-25] MEDS: CLOPIDOGREL BISULFATE 75 MG TABLET PO (09:01)
[2020-05-25] MEDS: MIDODRINE HCL 2.5 MG TABLET 5 MG PO ×3 (09:02→16:54)
[2020-05-25] MEDS: DOCUSATE SODIUM 100 MG CAPSULE PO (09:02)
[2020-05-25] MEDS: FERROUS SULFATE 324 MG TABLET PO ×2 (09:02→16:54)
[2020-05-25] MEDS: DONEPEZIL HCL 5 MG TABLET PO (20:26)
[2020-05-26] VITALS (9 sets, daily range): BP systolic 113–147; BP diastolic 74–90; PULSE 62–71; RESP 16–18; TEMP 36.1–36.4; O2SAT 95–96
--- NOTE | 2020-05-26 01:55 | PC.NURSE ---
pt sleeping, no evidence of distress noted, call light and belongings within reach
[2020-05-26] MEDS: DOCUSATE SODIUM 100 MG CAPSULE PO (09:26)
[2020-05-26] MEDS: ASPIRIN 325 MG ENTERIC TABLET PO (09:26)
[2020-05-26] MEDS: MECLIZINE HCL 25 MG TABLET 50 MG PO ×3 (09:26→17:05)
[2020-05-26] MEDS: MIDODRINE HCL 2.5 MG TABLET 5 MG PO ×3 (09:26→17:05)
[2020-05-26] MEDS: PANTOPRAZOLE 40 MG TABLET PO (09:27)
[2020-05-26] MEDS: FERROUS SULFATE 324 MG TABLET PO ×2 (09:27→17:06)
[2020-05-26] MEDS: CITALOPRAM HYDROBROMIDE 20 MG TABLET PO (09:27)
[2020-05-26] MEDS: ATORVASTATIN 10 MG TABLET 5 MG PO (09:27)
[2020-05-26] MEDS: CLOPIDOGREL BISULFATE 75 MG TABLET PO (09:28)
[2020-05-26] MEDS: DONEPEZIL HCL 5 MG TABLET PO (20:45)
[2020-05-27] VITALS: BP 165/90; PULSE 62; RESP 16; TEMP 36.3; O2SAT 97
[2020-05-27 07:45] VITALS: BP 163/96; PULSE 60; RESP 18; TEMP 36.3; O2SAT 95
[2020-05-27 07:50] VITALS: BP 150/90; PULSE 70
[2020-05-27 08:12] LABS: Hematocrit 41.1 % (37.0-46.0); Mean Corpuscular HGB Conc 31.6 g/dL (32.0-36.0); Mean Corpuscular Hemoglobin 30.6 pg (27.0-31.0); Mean Corpuscular Volume 96.7 fL (78.0-102.0); Mean Platelet Volume 9.9 fl (8.7-11.0); Platelet Count Result 231 K/mm3 (150-420); Red Blood Count 4.25 M/mm3 (4.70-6.10); Red Cell Distribution Width 11.9 % (11.6-14.4); White Blood Count 6.5 K/mm3 (4.8-10.8)
[2020-05-27 08:16] LABS: Alanine Aminotransferase 22 U/L (16-63); Albumin Level 3.3 g/dL (3.4-5.0); Alkaline Phosphatase 88 U/L (46-116); Anion Gap 5 mmol/L (8-16); Aspartate Amino Transferase 11 U/L (15-37); Bilirubin,Total 0.4 mg/dL (0.00-1.00); Blood Urea Nitrogen 17 mg/dL (7-18); Calcium 9.4 mg/dL (8.5-10.1); Carbon Dioxide 31 mmol/L (21-32); Chloride 101 mmol/L (98-108); Estimated CRCL calculation 37 ml/min; Estimated Glomerular Filt Rate 53; Glucose 97 mg/dL (70-99); Osmolality Calculated 285 mOsm/kg (285-295); Potassium 4.7 mmol/L (3.5-5.1); Sodium 137 mmol/L (136-145); Total Protein 6.4 g/dL (6.4-8.2)
--- NOTE | 2020-05-27 09:09 | PM.DS ---
DS: Admitting Diagnosis Admitting Diagnosis Admitting Diagnosis: Generalized weakness/physical deconditioning DS: Discharge Diagnosis Discharge Diagnosis (1) Weakness: Code(s): R53.1 - Weakness Status: Acute Assessment and Plan: ? Patient did have a slight improvement but continues to be high fall risk due to his dizziness and severe left side lean while ambulate. Patient and family members have been educated on fall prevention (2) Dizziness and giddiness: Code(s): R42 - Dizziness and giddiness Status: Acute Assessment and Plan: Secondary to CVA Patient started on midodrine Continue outpatient PT OT (3) GERD (gastroesophageal reflux disease): Code(s): K21.9 - Gastro-esophageal reflux disease without esophagitis Status: Acute Assessment and Plan: Continue Protonix (4) Hypertension: Code(s): I10 - Essential (primary) hypertension Status: Chronic Assessment and Plan: Stable Blood pressure medication discontinued. Instructed to take blood pressure readings for 1 week and give results to primary care physician for possible medication adjustment (5) Dementia: Code(s): F03.90 - Unspecified dementia without behavioral disturbance Status: Chronic Assessment and Plan: Continue home medication (6) Chronic back pain: Code(s): M54.9 - Dorsalgia, unspecified; G89.29 - Other chronic pain Status: Acute Assessment and Plan: Continue pain medication (7) Anemia: Code(s): D64.9 - Anemia, unspecified Status: Chronic Assessment and Plan: Stable Hemoglobin hematocrit at baseline No active bleeding noted (8) CVA (cerebral vascular accident): Code(s): I63.9 - Cerebral infarction, unspecified Status: Acute Assessment and Plan: MRI indicates acute infarct at the right frontal lobe and right side of medulla Started, aspirin and Plavix Will continue PT OT (9) Orthostatic hypotension: Code(s): I95.1 - Orthostatic hypotension Status: Acute Assessment and Plan: Midodrine started Follow-up with primary care physician DS: Summary Hospital Course Hospital Course: Ceferino Farias is a 84 year old male who was not the best historian at the time of admission per previous provider note. According to the notes patient became dizzy 2 nights prior to being admitted to the hospital. According to his he has a history of being dizzy but resolved shortly afterwards this particular time it did not resolve. He did have a fall at home. Patient does take tramadol at home that I have discontinued due to his high fall. Patient CT of the head was negative. 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 Patient has been prescribed statins, aspirin and Plavix. Patient transition to our swing bed for physical therapy/Occupational Therapy. he continues to have dizziness while standing or sitting up in a chair That has improved with the use of midodrine. The patient denies SOB, CP, palpitation, extremity numbness, constipation, diarrhea, chills, or fever. Patient notes that he still continues to have dizziness but it has improved since his admission. On occasion he continues to have a severe leaning to his left side while ambulating. It has been explained to family members and patient continues to be a high fall risk but it was emphasized that patient should be very careful to avoid falls and use his DME while at home. I have also instructed patient to take his blood pressure reading for 1 week. Patient previously had issues with hypertension. Once patient blood pressure improved I did start him on midodrine for him to continue to monitor his blood.. He will discharge home today with home health nursing home and for outpatient physical therapy occupational therapy. Time Spent with Patient Time attestation: Total time spent providing and/
[2020-05-27] MEDS: CITALOPRAM HYDROBROMIDE 20 MG TABLET PO (09:28)
[2020-05-27] MEDS: ASPIRIN 325 MG ENTERIC TABLET PO (09:28)
[2020-05-27] MEDS: DOCUSATE SODIUM 100 MG CAPSULE PO (09:28)
[2020-05-27] MEDS: ATORVASTATIN 10 MG TABLET 5 MG PO (09:28)
[2020-05-27] MEDS: MECLIZINE HCL 25 MG TABLET 50 MG PO (09:28)
[2020-05-27] MEDS: FERROUS SULFATE 324 MG TABLET PO (09:28)
[2020-05-27] MEDS: MIDODRINE HCL 2.5 MG TABLET 5 MG PO (09:29)
[2020-05-27] MEDS: CLOPIDOGREL BISULFATE 75 MG TABLET PO (09:29)
[2020-05-27] MEDS: PANTOPRAZOLE 40 MG TABLET PO (09:29)
--- NOTE | 2020-05-27 13:10 | PC.NURSE ---
Patient being discharged home. All belongings gathered together and sent home with patient. All discharge instructions and education reviewed with patient and daughter. Both parties state understanding and deny any questions at this time. Patient transferred from chair to wheel chair with 1 ast, gait belt and walker. Accompanied to front door via wheelchair by this nurse. Patient left via private vehicle with daughter.
--- NOTE | 2020-05-28 13:43 | PC.NURSE ---
states they received and understood the discharge instructions. also states I thought he had excellent care .
== END 2020-05-27 13:10 | disposition home health service (06) | DRG 57 ==
PROVIDERS: Nurse Practitioner; Nurse Practitioner Family; Admitting Provider Emergency Medicine; PCP Family Medicine; Visit Provider Emergency Medicine
DX: I69.398 Other sequelae of cerebral infarction (principal); R42 Dizziness and giddiness; R53.1 Weakness; D64.9 Anemia, unspecified; I10 Essential (primary) hypertension; I95.1 Orthostatic hypotension; K21.9 Gastro-esophageal reflux disease without esophagitis; M54.9 Dorsalgia, unspecified; G89.29 Other chronic pain; R06.00 Dyspnea, unspecified; F03.90 Unspecified dementia, unspecified severity, without behavioral disturbance, psychotic disturbance, mood disturbance, and anxiety; Z96.653 Presence of artificial knee joint, bilateral; Z96.642 Presence of left artificial hip joint; Z87.891 Personal history of nicotine dependence
CPT/HCPCS: 36415; 80048; 80053; 85025; 85027; 97110; 97112; 97116; 97161; 97165; 97530; 97535; A9270

== ENCOUNTER 2020-06-13 11:26 | Outpatient (NON) | payer MEDICARE, SELFPAY ==
[2020-06-13 11:43] LABS: Basophils Absolute Auto 0.04 K/mm3 (0.00-0.10); Basophils Percent Auto 0.6 % (0.0-1.0); Eosinophils Absolute Auto 0.18 K/mm3 (0.02-0.50); Eosinophils Percent Auto 2.8 % (1.0-6.0); Hematocrit 31.9 % (37.0-46.0); Immature Granulocyte Absolute 0.04 K/mm3 (0.00-0.00); Immature Granulocyte Percent A 0.6 % (0.0-0.0); Lymphocytes Absolute Auto 1.38 K/mm3 (1.10-4.50); Lymphocytes Percent Auto 21.3 % (18.0-42.0); Mean Corpuscular HGB Conc 31.3 g/dL (32.0-36.0); Mean Corpuscular Hemoglobin 31.1 pg (27.0-31.0); Mean Corpuscular Volume 99.1 fL (78.0-102.0); Monocytes Absolute Auto 0.64 K/mm3 (0.10-0.90); Monocytes Percent Auto 9.9 % (2.0-11.0); Neutrophils Absolute Auto 4.2 K/mm3 (1.7-7.2); Neutrophils Percent Auto 64.8 % (50.0-70.0); Platelet Count Result 289 K/mm3 (150-420); Red Blood Count 3.22 M/mm3 (4.70-6.10); Red Cell Distribution Width 13.1 % (11.6-14.4); White Blood Count 6.5 K/mm3 (4.8-10.8)
[2020-06-13 12:31] LABS: Alanine Aminotransferase 18 U/L (16-63); Albumin Level 3.3 g/dL (3.4-5.0); Alkaline Phosphatase 73 U/L (46-116); Anion Gap 9 mmol/L (8-16); Aspartate Amino Transferase 14 U/L (15-37); Bilirubin,Total 0.5 mg/dL (0.00-1.00); Blood Urea Nitrogen 17 mg/dL (7-18); Calcium 8.8 mg/dL (8.5-10.1); Carbon Dioxide 27 mmol/L (21-32); Chloride 100 mmol/L (98-108); Estimated Glomerular Filt Rate 50; Glucose 104 mg/dL (70-99); Osmolality Calculated 283 mOsm/kg (285-295); Potassium 4.2 mmol/L (3.5-5.1); Sodium 136 mmol/L (136-145); Total Protein 7.3 g/dL (6.4-8.2)
== END 2020-06-13 11:27 ==
LOC: CHSLAB 11:28
PROVIDERS: Visit Provider Family Medicine
DX: D64.9 Anemia, unspecified (principal); R42 Dizziness and giddiness; R53.1 Weakness
CPT/HCPCS: 36415; 80053; 85025

== ENCOUNTER 2020-06-14 09:28 | Emergency (ER) | payer MEDICARE, SELFPAY ==
--- NOTE | 2020-06-14 09:33 | ED.WEAKNESS ---
HPI - Weakness General Chief complaint: Weakness Stated complaint: Weak/Dizzy/ Time Seen by Provider: 06/14/20 09:31 Source: patient and RN notes reviewed Mode of arrival: ambulatory Limitations: no limitations History of Present Illness HPI Narrative: Patient went to his primary care physician yesterday for dizziness or weakness. He had lab work done that was all normal. However they told him that he has continued to feeling weak and dizzy that he should be seen again. He has a history of anemia and frequent transfusions. Patient was also started on Macrobid yesterday. MD Complaint: generalized weakness Onset (ago): day(s) (6) Duration: intermittent Location: generalized Migration: none Severity: moderate Relieving factors: none Exacerbating factors: exertion Associated symptoms: denies other symptoms Related Data Home Medications Medication Instructions Recorded Confirmed docusate sodium 100 mg PO DAILY 10/12/19 05/09/20 donepezil 5 mg PO HS 05/05/20 05/09/20 pantoprazole 40 mg PO DAILY 05/05/20 05/09/20 Allergies Allergy/AdvReac Type Severity Reaction Status Date / Time cephalexin [From Keflex] Allergy Hives Verified 04/03/20 10:03 diazepam [From Valium] AdvReac Confusion Verified 06/05/20 09:50 Review of Systems Constitutional: Constitutional: Denies chills and Denies fever(s) Eyes: Eyes: Reports no additional eye complaints ENT: Reports system reviewed and no additional complaints, except as documented Cardiovascular: Cardiovascular: Reports no additional cardiovascular complaints Respiratory: Respiratory: Reports no additional respiratory complaints Gastrointestinal: Gastrointestinal: Reports no additional gastrointestinal complaints Genitourinary: Genitourinary: Reports no additional male genitourinary complaints Musculoskeletal: Musculoskeletal: Reports no additional musculoskeletal complaints Integumentary/Breasts: Skin/Breast: Reports system reviewed and no additional complaints, except as docu Neurologic: Reports as per HPI Psychiatric: Psychiatric: Reports no additional psychiatric complaints [facility] Past Medical History Medical History (Updated 06/14/20 @ 10:48 by Escobar Tinoco MD) Anemia Chronic back pain CVA (cerebral vascular accident) Dementia Dementia Dorsalgia Dyspnea on exertion External hemorrhoid surgical removal in 97 GERD (gastroesophageal reflux disease) GI bleed Hernia, abdominal Surgical repair x's 2 in the Hypertension Surgical History Surgical History History of back surgery History of back surgery 2014 History of bilateral knee replacement History of knee surgery Bilateral Knees 2009 History of left hip replacement History of left hip replacement 2011 Family History Family History Mother Diabetes mellitus Emphysema of lung Father CAD (coronary artery disease) Dementia Father No problems noted. Mother No problems noted. Social History Social History Smoking status: Former smoker Tobacco type: cigars Second hand tobacco smoke exposure: Yes Smoking end date: 04/29/99 Alcohol intake: current Drinks per week: 1 Substance use: never Substance use type: does not use Additional living arrangements comments: . Lives with . 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
[2020-06-14 09:35] VITALS: BP 127/78; PULSE 64; RESP 18; TEMP 36.1; O2SAT 95
--- NOTE | 2020-06-14 09:55 | PC.NURSE ---
lab results from yesterday along with u/a reviewed per dr latham.
[2020-06-14 09:58] LABS: Basophils Absolute Auto 0.04 K/mm3 (0.00-0.10); Basophils Percent Auto 0.5 % (0.0-1.0); Eosinophils Absolute Auto 0.21 K/mm3 (0.02-0.50); Eosinophils Percent Auto 2.9 % (1.0-6.0); Hematocrit 33.1 % (37.0-46.0); Hemoglobin 10.4 g/dL (12.4-15.3); Immature Granulocyte Absolute 0.03 K/mm3 (0.00-0.00); Immature Granulocyte Percent A 0.4 % (0.0-0.0); Lymphocytes Absolute Auto 1.39 K/mm3 (1.10-4.50); Mean Corpuscular HGB Conc 31.4 g/dL (32.0-36.0); Mean Corpuscular Hemoglobin 31.4 pg (27.0-31.0); Mean Platelet Volume 9.3 fl (8.7-11.0); Monocytes Absolute Auto 0.76 K/mm3 (0.10-0.90); Monocytes Percent Auto 10.4 % (2.0-11.0); Neutrophils Absolute Auto 4.9 K/mm3 (1.7-7.2); Neutrophils Percent Auto 66.8 % (50.0-70.0); Platelet Count Result 272 K/mm3 (150-420); Red Blood Count 3.31 M/mm3 (4.70-6.10); Red Cell Distribution Width 13.1 % (11.6-14.4); White Blood Count 7.3 K/mm3 (4.8-10.8)
[2020-06-14 10:47] VITALS: BP 123/69; PULSE 59; RESP 16; O2SAT 97
== END 2020-06-14 10:58 | disposition home or self-care (01) ==
PROVIDERS: Emergency Provider Emergency Medicine; PCP Family Medicine
DX: R53.1 Weakness (principal); R42 Dizziness and giddiness; D64.9 Anemia, unspecified; I10 Essential (primary) hypertension; K21.9 Gastro-esophageal reflux disease without esophagitis; M54.9 Dorsalgia, unspecified; G89.29 Other chronic pain; R06.00 Dyspnea, unspecified; F03.90 Unspecified dementia, unspecified severity, without behavioral disturbance, psychotic disturbance, mood disturbance, and anxiety; Z86.73 Personal history of transient ischemic attack (TIA), and cerebral infarction without residual deficits; Z96.653 Presence of artificial knee joint, bilateral; Z96.642 Presence of left artificial hip joint
CPT/HCPCS: 36415; 85025; 99282; 99283

== ENCOUNTER 2020-07-10 09:34 | Outpatient (CLI) | payer MEDICARE, SELFPAY ==
[2020-07-10 09:50] LABS: Basophils Absolute Auto 0.03 K/mm3 (0.00-0.10); Basophils Percent Auto 0.5 % (0.0-1.0); Eosinophils Absolute Auto 0.14 K/mm3 (0.02-0.50); Eosinophils Percent Auto 2.4 % (1.0-6.0); Hematocrit 31.6 % (37.0-46.0); Hemoglobin 9.7 g/dL (12.4-15.3); Immature Granulocyte Absolute 0.04 K/mm3 (0.00-0.00); Immature Granulocyte Percent A 0.7 % (0.0-0.0); Lymphocytes Absolute Auto 1.18 K/mm3 (1.10-4.50); Lymphocytes Percent Auto 20.1 % (18.0-42.0); Mean Corpuscular HGB Conc 30.7 g/dL (32.0-36.0); Mean Corpuscular Hemoglobin 30.9 pg (27.0-31.0); Mean Corpuscular Volume 100.6 fL (78.0-102.0); Mean Platelet Volume 9.6 fl (8.7-11.0); Monocytes Absolute Auto 0.55 K/mm3 (0.10-0.90); Monocytes Percent Auto 9.4 % (2.0-11.0); Neutrophils Absolute Auto 3.9 K/mm3 (1.7-7.2); Neutrophils Percent Auto 66.9 % (50.0-70.0); Platelet Count Result 246 K/mm3 (150-420); Red Blood Count 3.14 M/mm3 (4.70-6.10); Red Cell Distribution Width 14.1 % (11.6-14.4); White Blood Count 5.9 K/mm3 (4.8-10.8)
[2020-07-10 10:33] LABS: Alanine Aminotransferase 20 U/L (16-63); Albumin Level 3.4 g/dL (3.4-5.0); Alkaline Phosphatase 67 U/L (46-116); Anion Gap 7 mmol/L (8-16); Aspartate Amino Transferase 10 U/L (15-37); Bilirubin,Total 0.5 mg/dL (0.00-1.00); Blood Urea Nitrogen 17 mg/dL (7-18); Carbon Dioxide 30 mmol/L (21-32); Chloride 102 mmol/L (98-108); Estimated Glomerular Filt Rate 49; Glucose 122 mg/dL (70-99); Osmolality Calculated 290 mOsm/kg (285-295); Potassium 4.6 mmol/L (3.5-5.1); Sodium 139 mmol/L (136-145); Total Protein 6.1 g/dL (6.4-8.2)
== END 2020-07-10 09:35 | disposition home or self-care (01) ==
LOC: CHSLAB 09:36
PROVIDERS: PCP Family Medicine; Visit Provider Family Medicine
DX: D64.9 Anemia, unspecified (principal)
CPT/HCPCS: 36415; 80053; 85025

== ENCOUNTER 2020-07-15 15:13 | Outpatient (RCR) | payer MEDICARE, SELFPAY ==
--- NOTE | 2020-07-15 16:08 | PTOPEVAL ---
Thank you for referring Ceferino Farias to [facility].? The patient is scheduled to be seen for therapy? ____x/week for ___ weeks. Please review, sign, date and return this plan of care VIRI. I agree with and certify that the following plan of care is medically necessary. Referring Physician Date Admitting Provider: Attending Provider: Raymond Ahuja MD Referring Provider: *PT Outpatient Evaluation Start: 07/15/20 15:02 Freq: Status: Active Protocol: Document 07/15/20 15:02 ACR (Rec: 07/15/20 16:08 ACR [id number]) Therapy Assessment Status Assessment Status Assessment Status Evaluation Outpatient Past Medical History Neurological History Hx Cerebrovascular Accident (CVA) Yes Hx Dementia Yes Cardiovascular History Hx Cardiac Disorders No Significant History Respiratory History Hx Respiratory Disorders No Significant History Gastrointestinal History Hx Gastrointestinal Disorders No Significant History Genitourinary History Hx Genitourinary Disorders No Significant History Musculoskeletal History Hx Joint Replacement Yes: BILAT KNEES Hx Orthopedic Surgery Yes: L HIP and Back Hematological History Hx Anemia Yes Hx Blood Transfusions Yes Endocrine History Hx Endocrine Disorders No Significant History HEENT History Hx Cataracts Yes Integumentary History Hx Skin Disorders No Significant History Reproductive History Hx Reproductive Disorders No Significant History Psychosocial History Hx Psychiatric Disorders No Significant History Pain History History of Any Previous or Ongoing No Significant History Instance of Pain Anesthesia History Hx Anesthesia Reactions No Significant History Other History Hx Radiation Therapy Yes: for overactive thyroid Evaluation Information Problem Diagnosis unsteadiness of gait Subjective Information Patient has been out of the Query Text:As Reported By Patient/ hospital since May 27 after Family almost 1 month of being admitted for a stroke on . Patient states he has been having difficulty with his balance lately but denies falls. He ambulates with the walker at all time. Patient states he lives at home with his who helps with some of his ADLs, but he can do just about everything as long as he takes it slow. His states that he was doing well
== END 2020-09-05 09:16 | disposition home or self-care (01) ==
LOC: CHSPT 15:13
PROVIDERS: PCP Family Medicine; Visit Provider Family Medicine
DX: R53.1 Weakness (principal); R26.81 Unsteadiness on feet
CPT/HCPCS: 97110; 97116; 97161; 97530

== ENCOUNTER 2020-07-21 02:56 | Emergency (ER) | payer MEDICARE, SELFPAY ==
[2020-07-21 03:15] VITALS: BP 140/77; PULSE 61; RESP 18; TEMP 36.4; O2SAT 97
[2020-07-21 03:55] LABS: Influenza Control Valid (Valid)
--- NOTE | 2020-07-21 04:08 | ED.URI ---
HPI - URI/Sore Throat General Chief Complaint: Upper Respiratory Infection Stated Complaint: Sore throat Source: patient and family Mode of arrival: ambulatory Limitations: no limitations History of Present Illness HPI Narrative: this an 84-year-old gentleman that presents with a sore throat a dry mouth with no nasal congestion no nasal discharge no shortness of breath no cough no fevers no chest pain. MD elicited complaint: sore throat Onset (ago): day(s) Related Data Home Medications Medication Instructions Recorded Confirmed docusate sodium 100 mg PO BID 10/12/19 07/21/20 donepezil [Aricept] 5 mg PO HS 05/05/20 07/21/20 tramadol 50 mg PO PRN PRN 07/21/20 07/21/20 vitamin B complex-folic acid 1 tablet PO DAILY 07/21/20 07/21/20 Allergies Allergy/AdvReac Type Severity Reaction Status Date / Time cephalexin [From Keflex] Allergy Hives Verified 07/10/20 09:15 diazepam [From Valium] AdvReac Confusion Verified 07/10/20 09:15 Review of Systems Review of Systems: All systems reviewed & are unremarkable except as noted in HPI and below PMFSH Past Medical History Medical History Anemia Anemia Chronic back pain CVA (cerebral vascular accident) Dementia Dementia Dorsalgia Dyspnea on exertion External hemorrhoid surgical removal in 97 GERD (gastroesophageal reflux disease) GI bleed Hernia, abdominal Surgical repair x's 2 in the 90's Hypertension Surgical History Surgical History History of back surgery History of back surgery 2014 History of bilateral knee replacement History of knee surgery Bilateral Knees 2009 History of left hip replacement History of left hip replacement 2012 Family History Family History Mother Diabetes mellitus Emphysema of lung Father CAD (coronary artery disease) Dementia Father No problems noted. Mother No problems noted. Social History Social History Smoking status: Former smoker Tobacco type: cigars Second hand tobacco smoke exposure: Yes Smoking end date: 04/29/99 Alcohol intake: current Drinks per week: 1 Substance use: never Substance use type: does not use Additional living arrangements comments: . Lives with . 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 Gender identity (if verbalized by the patient): Male Spiritual care concerns: No Exam Const: General: no acute distress Orientation/consciousness: patient oriented x3 HENMT: Head: normal to inspection Mouth: Yes dry mucous membranes Eyes: Conjunctivae: conjunctivae normal Pupils: Equal, round and reactive pupils present Neck: Neck: no lymphadenopathy and no meningeal signs Chest: Chest palpation & inspection: normal inspection of the chest Resp: Effort & Inspection: normal respiratory effort Auscultation: clear to auscultation bilaterally Cardio: Rate: regular rate Rhythm: regular rhythm GI: GI Palp: Yes Soft to palpation Percussion: Yes normal to percussion Skin: General skin exam: normal color Rashes: no rashes Neuro: General: patient oriented x3 and moves all extremities Extrem: General: normal to inspection and no pedal edema Psych: Mental Status: mental status grossly normal Course Course Emergency Course: Advised patient to drink plenty of water and follow-up was primary care physician if symptoms persist or worsen. And reviewed a negative strep and negative influenza with patient and his family. Vital Signs Vital signs: Vital Signs Temperature 36.4 C 07/21/20 03:15 Pulse Rate 61 07/21/20 03:15 Respiratory Rate 18 07/21/20 03:15 Blood Pressure 140/77 07/21/20 03:15 Pulse Oximetry 97 07/21/20 03:15 Temperature 36.4 C 07/21/20 03:15
[2020-07-21 04:10] VITALS: BP 131/76; PULSE 71; RESP 20; O2SAT 98
== END 2020-07-21 04:16 | disposition home or self-care (01) ==
PROVIDERS: Emergency Provider Emergency Medicine; PCP Family Medicine
DX: J02.9 Acute pharyngitis, unspecified (principal); Z87.891 Personal history of nicotine dependence
CPT/HCPCS: 36415; 87081; 87804; 87880; 99282; 99283

== ENCOUNTER 2020-08-08 11:09 | Outpatient (CLI) | payer MEDICARE, SELFPAY ==
[2020-08-08 11:21] LABS: Basophils Absolute Auto 0.04 K/mm3 (0.00-0.10); Basophils Percent Auto 0.6 % (0.0-1.0); Eosinophils Absolute Auto 0.16 K/mm3 (0.02-0.50); Eosinophils Percent Auto 2.3 % (1.0-6.0); Hematocrit 40.6 % (37.0-46.0); Hemoglobin 12.6 g/dL (12.4-15.3); Immature Granulocyte Absolute 0.04 K/mm3 (0.00-0.00); Immature Granulocyte Percent A 0.6 % (0.0-0.0); Lymphocytes Absolute Auto 1.22 K/mm3 (1.10-4.50); Lymphocytes Percent Auto 17.2 % (18.0-42.0); Mean Corpuscular Hemoglobin 30.9 pg (27.0-31.0); Mean Corpuscular Volume 99.5 fL (78.0-102.0); Mean Platelet Volume 9.6 fl (8.7-11.0); Monocytes Absolute Auto 0.55 K/mm3 (0.10-0.90); Monocytes Percent Auto 7.8 % (2.0-11.0); Neutrophils Absolute Auto 5.1 K/mm3 (1.7-7.2); Neutrophils Percent Auto 71.5 % (50.0-70.0); Platelet Count Result 241 K/mm3 (150-420); Red Blood Count 4.08 M/mm3 (4.70-6.10); Red Cell Distribution Width 13.7 % (11.6-14.4); White Blood Count 7.1 K/mm3 (4.8-10.8)
== END 2020-08-08 11:10 | disposition home or self-care (01) ==
LOC: CHSLAB 11:11
PROVIDERS: PCP Family Medicine; Visit Provider Family Medicine
DX: D64.9 Anemia, unspecified (principal)
CPT/HCPCS: 36415; 85025

== ENCOUNTER 2020-09-13 11:05 | Outpatient (CLI) | payer MEDICARE, SELFPAY ==
[2020-09-13 11:17] LABS: Basophils Absolute Auto 0.04 K/mm3 (0.00-0.10); Basophils Percent Auto 0.5 % (0.0-1.0); Eosinophils Absolute Auto 0.13 K/mm3 (0.02-0.50); Eosinophils Percent Auto 1.8 % (1.0-6.0); Hematocrit 42.9 % (37.0-46.0); Hemoglobin 13.9 g/dL (12.4-15.3); Immature Granulocyte Absolute 0.04 K/mm3 (0.00-0.00); Immature Granulocyte Percent A 0.5 % (0.0-0.0); Lymphocytes Percent Auto 21.7 % (18.0-42.0); Mean Corpuscular HGB Conc 32.4 g/dL (32.0-36.0); Mean Corpuscular Hemoglobin 31.2 pg (27.0-31.0); Mean Corpuscular Volume 96.2 fL (78.0-102.0); Mean Platelet Volume 9.9 fl (8.7-11.0); Monocytes Absolute Auto 0.62 K/mm3 (0.10-0.90); Monocytes Percent Auto 8.4 % (2.0-11.0); Neutrophils Percent Auto 67.1 % (50.0-70.0); Platelet Count Result 228 K/mm3 (150-420); Red Blood Count 4.46 M/mm3 (4.70-6.10); Red Cell Distribution Width 13.1 % (11.6-14.4); White Blood Count 7.4 K/mm3 (4.8-10.8)
== END 2020-09-13 11:06 | disposition home or self-care (01) ==
LOC: CHSLAB 11:07
PROVIDERS: PCP Family Medicine; Visit Provider Family Medicine
DX: D64.9 Anemia, unspecified (principal)
CPT/HCPCS: 36415; 85025

== ENCOUNTER 2020-11-24 09:50 | Emergency (ER) | payer MEDICARE, SELFPAY ==
--- NOTE | ~2020-11-24 | XR_ITS ---
EXAMINATION: XR chest 1V portable DATE: 11/24/2020 10:22 INDICATION: Dyspnea TECHNIQUE: frontal view of the chest was obtained. COMPARISON: Chest radiograph dated 05/05/2020 FINDINGS: Large retrocardiac opacity corresponding to a large hiatal hernia as seen on CT dated 07/15/2017. Mild opacities in the bilateral mid and lower lung zones most prominent in the perihilar regions. No pleu ral effusion or pneumothorax. Heart size within normal limits conifer AP technique. IMPRESSION: 1. Mild opacities in the bilateral mid and lower lung zones with perihilar predominance which could r epresent mild pulmonary edema, atelectasis or pneumonia. 2. Large hiatal hernia. Reviewed, dictated and finalized at location A. IMPRESSION: 1. Mild opacities in the bilateral mid and lower lung zones with perihilar pred ominance which could represent mild pulmonary edema, atelectasis or pneumonia. 2. Large hiatal hernia.
[2020-11-24 09:54] VITALS: BP 141/88; PULSE 60; RESP 22; TEMP 37; O2SAT 97
--- NOTE | 2020-11-24 10:07 | ED.SOB ---
HPI - SOB/Dyspnea General Chief Complaint: Shortness of Breath/Dyspnea Stated Complaint: sob Time Seen by Provider: 11/24/20 10:07 Source: patient Mode of arrival: ambulatory Limitations: no limitations History of Present Illness HPI Narrative: 84-year-old man with a history of CVA, GI bleed, and hypertension brought to the emergency department today by his as she notices getting progressively weak over the last couple of days. He was barely able to stand today and today he complains of shortness of breath. Denies chest pain, nausea, vomiting, fever, chills, abdominal pain, diarrhea, dysuria and sick exposures. His states he has black stools because he takes iron daily. MD elicited complaint: shortness of breath and cough Onset (ago): day(s) (3) Timing: constant and progressively worsening Severity: moderate Exacerbating factors: nothing Associated symptoms: cough Treatment prior to arrival: none Related Data Home oxygen amount: none Home Medications Medication Instructions Recorded Confirmed docusate sodium 100 mg PO BID 10/12/19 11/24/20 donepezil [Aricept] 5 mg PO HS 05/05/20 11/24/20 tramadol 50 mg PO PRN PRN 07/21/20 11/24/20 vitamin B complex-folic acid 1 tablet PO DAILY 07/21/20 11/24/20 Allergies Allergy/AdvReac Type Severity Reaction Status Date / Time cephalexin [From Keflex] Allergy Hives Verified 10/10/20 09:07 diazepam [From Valium] AdvReac Confusion Verified 10/10/20 09:07 Review of Systems Review of Systems: All systems reviewed & are unremarkable except as noted in HPI and below Constitutional: Constitutional: Denies chills and Denies fever(s) ENT: Denies nasal congestion and Denies sore throat Cardiovascular: Cardiovascular: Denies chest pain and Denies radiating jaw, neck or arm pain Respiratory: Respiratory: Reports cough, Reports dyspnea and Denies wheezing Gastrointestinal: Gastrointestinal: Denies abdominal pain, Denies diarrhea, Denies nausea and Denies vomiting Genitourinary: Genitourinary: Denies dysuria and Denies urinary frequency Musculoskeletal: Musculoskeletal: Denies back pain, Denies arthralgias and Denies joint swelling Integumentary/Breasts: Skin/Breast: Denies pruritus, Denies erythema and Denies rash Neurologic: Denies vertigo, Denies dizziness, Denies syncope and Reports weakness Hematologic/Lymphatic: Hematologic/Lymphatic: Denies easy bleeding and Denies easy bruising Allergic/Immunologic: Allergic/Immunologic: Denies lip swelling and Denies throat swelling [facility] Past Medical History Medical History Anemia Anemia Chronic back pain CVA (cerebral vascular accident) Dementia Dementia Dorsalgia Dyspnea on exertion External hemorrhoid surgical removal in 97 GERD (gastroesophageal reflux disease) GI bleed Hernia, abdominal Surgical repair x's 2 in the ' Hypertension Surgical History Surgical History History of back surgery History of back surgery 2013 History of bilateral knee replacement History of knee surgery Bilateral Knees 2009 History of left hip replacement History of left hip replacement 2011 Family History Family History Mother Diabetes mellitus Emphysema of lung Father CAD (coronary artery disease) Dementia Father No problems noted. Mother No problems noted. Social History Social History Smoking status: Former smoker Tobacco type: cigars Second hand tobacco smoke exposure: Yes Smoking end date: 04/29/99 Alcohol intake: current Drinks per week: 1 Substance use: never Substance use type: does not use Additional living arrangements comments: . Lives with . 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
--- NOTE | 2020-11-24 10:08 | ECG_ITS ---
Measurements Intervals [place] Rate: 59 P: 6 ME: 152 QRS: 4 QRSD: 86 T: -1 QT: 395 QTc: 394 Interpretive Statements SINUS BRADYCARDIA VOLTAGE CRITERIA FOR LVH BORDERLINE T WAVE ABNORMALITY- INFERIOR LEADS BASELINE ARTIFACT- I, II, III, AVR, AVL, AVF, V1-V6 BORDERLINE ECG Electronically Signed On 11-25-2020 6:05:38 CDT by Lawson Chavez D.O.
[2020-11-24 10:31] LABS: Basophils Absolute Auto 0.03 K/mm3 (0.00-0.10); Basophils Percent Auto 0.6 % (0.0-1.0); Eosinophils Absolute Auto 0.09 K/mm3 (0.02-0.50); Eosinophils Percent Auto 1.7 % (1.0-6.0); Hematocrit 32.8 % (37.0-46.0); Hemoglobin 9.8 g/dL (12.4-15.3); Immature Granulocyte Absolute 0.03 K/mm3 (0.00-0.00); Immature Granulocyte Percent A 0.6 % (0.0-0.0); Lymphocytes Absolute Auto 0.66 K/mm3 (1.10-4.50); Lymphocytes Percent Auto 12.5 % (18.0-42.0); Mean Corpuscular HGB Conc 29.9 g/dL (32.0-36.0); Mean Corpuscular Hemoglobin 28.5 pg (27.0-31.0); Mean Corpuscular Volume 95.3 fL (78.0-102.0); Mean Platelet Volume 9.7 fl (8.7-11.0); Monocytes Absolute Auto 0.64 K/mm3 (0.10-0.90); Monocytes Percent Auto 12.2 % (2.0-11.0); Neutrophils Absolute Auto 3.8 K/mm3 (1.7-7.2); Neutrophils Percent Auto 72.4 % (50.0-70.0); Platelet Count Result 238 K/mm3 (150-420); Red Blood Count 3.44 M/mm3 (4.70-6.10); Red Cell Distribution Width 13.5 % (11.6-14.4); White Blood Count 5.3 K/mm3 (4.8-10.8)
[2020-11-24 10:35] VITALS: PULSE 59
[2020-11-24 10:40] LABS: Add Urine Microscopic? YES; Appearance Urine Clear (Clear); Bilirubin Urine Negative (Negative); Blood Urine Negative (Negative); Color Urine Light Yellow (Yellow); Glucose Urine UA Negative (Negative); Ketones Urine Negative (Negative); Leukocyte Esterase Ur Negative LEU/UL (Negative); Nitrate Urine Negative (Negative); Protein Urine Trace (Negative); Specific Grav Ur 1.025 (1.010-1.020); Urobilinogen Urine 0.2 mg/dL (0.2-1.0)
[2020-11-24 10:45] LABS: Bacteria Urine Trace /hpf; Mucus Urine Few /lpf; RBC Urine 0-2 /hpf (0-2); Squamous Epithelial Cell Urine Few /hpf (Few); WBC Urine 0-3 /hpf (0-3)
[2020-11-24 10:46] LABS: D Dimer 0.75 mg/L (0.19-0.50)
[2020-11-24 10:52] LABS: Lactic Acid Reflex 1.3 mmol/L (0.4-2.0)
[2020-11-24 10:57] LABS: Influenza Control Valid (Valid); SARS-CoV-2 Ag Negative (Negative)
[2020-11-24 11:02] LABS: Alanine Aminotransferase 26 U/L (16-63); Albumin Level 4.1 g/dL (3.4-5.0); Alkaline Phosphatase 87 U/L (46-116); Anion Gap 11 mmol/L (8-16); Aspartate Amino Transferase 15 U/L (15-37); Bilirubin,Total 0.6 mg/dL (0.00-1.00); Blood Urea Nitrogen 17 mg/dL (7-18); CRP < 0.5 mg/dL (0.0-0.9); Calcium 8.9 mg/dL (8.5-10.1); Carbon Dioxide 28 mmol/L (21-32); Chloride 97 mmol/L (98-108); Estimated CRCL calculation 39 ml/min; Estimated Glomerular Filt Rate 53; Glucose 110 mg/dL (70-99); NT Pro B Type Natriuretic Pept 321 pg/mL (0-450); Osmolality Calculated 284 mOsm/kg (285-295); Potassium 4.5 mmol/L (3.5-5.1); Sodium 136 mmol/L (136-145); Total Protein 7.8 g/dL (6.4-8.2); Troponin I 9.6 ng/L (0.00-60.4)
[2020-11-24 12:00] LABS: Occult Blood Negative (Negative)
[2020-11-24 12:17] VITALS: BP 150/88; PULSE 58; RESP 20; TEMP 36.9; O2SAT 98
== END 2020-11-24 12:20 | disposition home or self-care (01) ==
PROVIDERS: Emergency Provider Emergency Medicine; PCP Family Medicine
DX: R53.1 Weakness (principal); D64.9 Anemia, unspecified; Z20.822 Contact with and (suspected) exposure to COVID-19; R06.02 Shortness of breath
CPT/HCPCS: 36415; 71045; 80053; 81001; 82272; 83605; 83880; 84484; 85025; 85380; 86140; 87040; 87426; 87804; 93005; 99283; 99284; C9803

== ENCOUNTER 2020-11-29 09:38 | Outpatient (CLI) | payer MEDICARE, SELFPAY ==
[2020-11-29 09:49] LABS: Basophils Absolute Auto 0.01 K/mm3 (0.00-0.10); Basophils Percent Auto 0.2 % (0.0-1.0); Hematocrit 32.3 % (37.0-46.0); Hemoglobin 9.9 g/dL (12.4-15.3); Immature Granulocyte Absolute 0.03 K/mm3 (0.00-0.00); Immature Granulocyte Percent A 0.5 % (0.0-0.0); Lymphocytes Percent Auto 14.6 % (18.0-42.0); Mean Corpuscular HGB Conc 30.7 g/dL (32.0-36.0); Mean Corpuscular Hemoglobin 27.9 pg (27.0-31.0); Mean Platelet Volume 10.6 fl (8.7-11.0); Monocytes Absolute Auto 0.54 K/mm3 (0.10-0.90); Monocytes Percent Auto 8.8 % (2.0-11.0); Neutrophils Absolute Auto 4.7 K/mm3 (1.7-7.2); Neutrophils Percent Auto 75.9 % (50.0-70.0); Platelet Count Result 241 K/mm3 (150-420); Red Blood Count 3.55 M/mm3 (4.70-6.10); Red Cell Distribution Width 13.5 % (11.6-14.4); White Blood Count 6.2 K/mm3 (4.8-10.8)
== END 2020-11-29 09:39 | disposition home or self-care (01) ==
LOC: CHSLAB 09:40
PROVIDERS: PCP Family Medicine; Visit Provider Family Medicine
DX: D64.9 Anemia, unspecified (principal)
CPT/HCPCS: 36415; 85025

== ENCOUNTER 2020-12-09 07:02 | Inpatient (IN) | payer MEDICARE, SELFPAY ==
--- NOTE | ~2020-12-09 | US_ITS ---
EXAMINATION: US carotid duplex BI DATE: 12/09/2020 09:13 INDICATION: Stroke symptoms with altered mental status, lethargy and leg twitching. TECHNIQUE: Grayscale, color Doppler, and pulsed Doppler images of the cervical carotid arteries were obtained. The degree of vessel stenosis is placed in one of the following categories: normal, <50%, 5 0-69%, >=70% but less than near-occlusion, near-occlusion, or total occlusion. Note that percent sten osis relative to normal distal artery lumen diameter is indirectly measured from velocity measurement s as described by Kamar, et al. Radiology 2003; [id number]. COMPARISON: None. FINDINGS: RIGHT: The right common carotid artery (CCA) peak systolic velocity (PSV) is 73 cm/s. The right internal car otid artery (ICA) PSV is 80 cm/s. The right ICA end-diastolic velocity (EDV) is 15 cm/s. The right IC A/CCA PSV ratio is 1.1. Grayscale and color Doppler images yield an estimate of <50% diameter reducti on from plaque in the ICA. The external carotid artery (ECA) PSV is 107 cm/s. There is antegrade flow in the right vertebral artery. LEFT: The left CCA PSV is 106 cm/s. The left ICA PSV is 110 cm/s. The left ICA EDV is 8 cm/s. The left ICA/ CCA PSV ratio is 1.0. Grayscale and color Doppler images yield an estimate of <50% diameter reduction from plaque in the ICA. The ECA PSV is 144 cm/s. There is antegrade flow in the left vertebral arter y. IMPRESSION: 1. <50% stenosis in the right internal carotid artery. 2. <50% stenosis in the left internal carotid artery. Reviewed, dictated and finalized at location A.
--- NOTE | ~2020-12-09 | CT_ITS ---
EXAMINATION: CT brain wo con DATE: 12/09/2020 08:05 INDICATION: Altered mental status presenting nonverbal with lethargy and leg twitching TECHNIQUE: Computed tomography (CT) of the head was performed without intravenous contrast. Sagittal and coronal reconstructions were performed. The mA was adjusted according to patient size. Iterative reconstruction technique was employed. The dose-length product was 605.33 mGy-cm. 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 No acute intracranial hemorrhage, acute infarction or abnormal extra axial fluid collection. There is extensive scattered white matter hypoattenuation con sistent with chronic small vessel ischemic disease. Symmetric prominence of the sulci and ventricles consistent with mild to moderate age-appropriate diffuse cerebral volume loss. No mass/mass effect. C hanges of bilateral intraocular lens replacement. The orbits and mastoid air cells are normal. Mild m ucoperiosteal thickening the bilateral ethmoid sinuses. Intracranial calcified cerebral atheroscleros is is noted. IMPRESSION: 1. No acute intracranial process. 2. 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 3. Age-related changes including mild to moderate diffuse volume loss and extensive scattered white m atter hypoattenuation consistent with chronic small vessel ischemic disease. Reviewed, dictated and finalized at location A. IMPRESSION: 1. No acute intracranial process. 2. 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 3. Age-related changes including mild to moderate diffuse volume loss and exten sive scattered white matter hypoattenuation consistent with chronic small vesse l ischemic disease.
--- NOTE | ~2020-12-09 | XR_ITS ---
EXAMINATION: XR chest 1V portable EXAM DATE: 12/09/2020 08:04 INDICATION: Altered mental status. TECHNIQUE: Portable AP frontal chest x-ray was obtained. Comparison is made to prior examination from 11/24/2020. FINDINGS: Ill-defined segmental left basilar edema or pneumonia. Less amount of airspace disease othe r areas of lungs bilaterally. Cardiomegaly and pulmonary vascular congestion. No sizable pleural effu destini. No pneumothorax. There are bony degenerative changes. Accounting for differences in technique, there is no significant interval change. Large hiatal hernia less well-visualized on this exam. IMPRESSION: 1. Mild to moderate bilateral pneumonia and/or edema. Clinical correlation. 2. Cardiomegaly, pulmonary vascular congestion. Reviewed, dictated and finalized at location B.
[2020-12-09 07:02] VITALS: BP 153/71; BP 167/80; PULSE 60; PULSE 62; RESP 14; RESP 15; TEMP 35.6; O2SAT 94
--- NOTE | 2020-12-09 07:19 | ECG_ITS ---
Measurements Intervals [place] Rate: 56 P: 27 OR: 175 QRS: 50 QRSD: 90 T: 47 QT: 467 QTc: 452 Interpretive Statements SINUS BRADYCARDIA BASELINE ARTIFACT- I, II, III, AVR, AVL, AVF, V1 BORDERLINE ECG Electronically Signed On 12-09-2020 9:04:01 CDT by Lawson Chavez D.O.
[2020-12-09 07:33] LABS: Glucose Point of Care 141 mg/dl (65-105)
[2020-12-09 07:54] LABS: Base Excess ABG 3.1 mmol/L (0-2); Basophils Absolute Auto 0.02 K/mm3 (0.00-0.10); Basophils Percent Auto 0.2 % (0.0-1.0); Device NASAL CANNULA; HCO3 ABG 27.6 mmol/L (23-29); Hematocrit 32.3 % (37.0-46.0); Hemoglobin 9.8 g/dL (12.4-15.3); Immature Granulocyte Absolute 0.09 K/mm3 (0.00-0.00); Immature Granulocyte Percent A 0.9 % (0.0-0.0); Lymphocytes Absolute Auto 0.81 K/mm3 (1.10-4.50); Lymphocytes Percent Auto 8.1 % (18.0-42.0); Mean Corpuscular HGB Conc 30.3 g/dL (32.0-36.0); Mean Platelet Volume 10.2 fl (8.7-11.0); Modified Allen's Test Unable to perform; Neutrophils Absolute Auto 8.7 K/mm3 (1.7-7.2); Neutrophils Percent Auto 86.8 % (50.0-70.0); Oxygen Content ABG 14.3 %vol (16.0-22.0); Oxygen Saturation ABG 93.5 % (95-97); Oxyhemoglobin 92.9 % (94-100); PCO2 ABG 42.1 mmHg (35-45); PO2 ABG 72.7 mmHg (75-85); Platelet Count Result 378 K/mm3 (150-420); Red Blood Count 3.63 M/mm3 (4.70-6.10); Red Cell Distribution Width 13.5 % (11.6-14.4); Site Drawn LEFT RADIAL; Total Hemoglobin 10.9 g/dL (12.0-18.0); White Blood Count 10.1 K/mm3 (4.8-10.8); pH ABG 7.44 (7.35-7.45)
[2020-12-09 08:08] LABS: Partial Thromboplastin Time 24.4 SEC (23.90-30.70)
[2020-12-09 08:14] LABS: Alanine Aminotransferase 33 U/L (16-63); Albumin Level 2.7 g/dL (3.4-5.0); Alkaline Phosphatase 103 U/L (46-116); Anion Gap 11 mmol/L (8-16); Aspartate Amino Transferase 31 U/L (15-37); Bilirubin,Total 0.5 mg/dL (0.00-1.00); Blood Urea Nitrogen 15 mg/dL (7-18); Calcium 8.5 mg/dL (8.5-10.1); Carbon Dioxide 25 mmol/L (21-32); Chloride 105 mmol/L (98-108); Estimated Glomerular Filt Rate > 60; Glucose 144 mg/dL (70-99); Osmolality Calculated 295 mOsm/kg (285-295); Potassium 3.9 mmol/L (3.5-5.1); Sodium 141 mmol/L (136-145); Total Protein 6.1 g/dL (6.4-8.2)
--- NOTE | 2020-12-09 08:30 | ED.AMS ---
HPI - Altered Mental Status General Chief Complaint: Altered Mental Status Stated Complaint: Ambulance Source: patient, family and EMS Mode of arrival: EMS Limitations: language barrier, altered mental status, physical limitation and dementia History of Present Illness HPI narrative: this is an 85-year-old male with a previous history of CVA presents via EMS after family called that he had weakness with some altered mental status and choking water with some right-sided arm weakness and slurred speech. Time of these events started around 6:00 p.m. yesterday evening with patient's family thought that he was having neck pain and spasm, patient currently nonverbal, is alert not oriented, not having any pain no shortness of breath no fever or chills no nausea vomiting. MD complaint: altered mental status, confusion and weakness Onset (ago): hour(s) Timing confirmed by: family member Severity: moderate Context: history of similar presentation Related Data Home Medications Medication Instructions Recorded Confirmed docusate sodium 100 mg PO BID 10/12/19 12/09/20 donepezil [Aricept] 5 mg PO HS 05/05/20 12/09/20 tramadol 50 mg PO PRN PRN 07/21/20 12/09/20 vitamin B complex-folic acid 1 tablet PO DAILY 07/21/20 12/09/20 Allergies Allergy/AdvReac Type Severity Reaction Status Date / Time cephalexin [From Keflex] Allergy Hives Verified 11/29/20 10:22 diazepam [From Valium] AdvReac Confusion Verified 11/29/20 10:22 Review of Systems Review of Systems: All systems reviewed & are unremarkable except as noted in HPI and below PMFSH Past Medical History Medical History Anemia Anemia Chronic back pain CKD (chronic kidney disease) CVA (cerebral vascular accident) Dementia Dementia Dorsalgia Dyspnea on exertion External hemorrhoid surgical removal in 97 GERD (gastroesophageal reflux disease) GI bleed Hernia, abdominal Surgical repair x's 2 in the Hypertension Thyroid nodule Surgical History Surgical History History of back surgery History of back surgery 2014 History of bilateral knee replacement History of knee surgery Bilateral Knees 2009 History of left hip replacement History of left hip replacement 2011 Family History Family History Mother Diabetes mellitus Emphysema of lung Father CAD (coronary artery disease) Dementia Father No problems noted. Mother No problems noted. Social History Social History Smoking status: Former smoker Tobacco type: cigars Second hand tobacco smoke exposure: Yes Smoking end date: 04/29/99 Alcohol intake: current Drinks per week: 1 Substance use: never Substance use type: does not use Additional living arrangements comments: . Lives with . 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 Gender identity (if verbalized by the patient): Male Sexual Orientation (if Verbalized by the Patient): Straight or Heterosexual Spiritual care concerns: No Exam Const: General: confusion and ill appearing Limitations: altered mental status HENMT: Head: normal to inspection Eyes: Conjunctivae: conjunctivae normal Pupils: Equal, round and reactive pupils present Neck: Neck: normal visual inspection, no lymphadenopathy and no meningeal signs Chest: Chest palpation & inspection: normal inspection of the chest Resp: Effort & Inspection: normal respiratory effort Auscultation: clear to auscultation bilaterally Cardio: Rate: regular rate and bradycardic : Male General Exam: Yes normal external exam Back/Spine/Pelvis: Back: no CVA tenderness Skin: General skin exam: normal color Rashes: no rashes Neuro: Speech: Abnormal speech present Other: Patient
--- NOTE | 2020-12-09 08:42 | PC.NURSE ---
RN CONTACTED [facility] TO REQUEST INPATIENT ROOM. ROOM 209 PROVIDED. REGISTRATION NOTIFIED.
[2020-12-09 08:58] VITALS: BP 138/76; PULSE 65; RESP 16; TEMP 35.6; O2SAT 94
--- NOTE | 2020-12-09 10:00 | PC.NURSE ---
Pt transferred via stretcher to room 209 from ED. Transferred to bed with assist of 2 nurses. Pt will open eyes to painful stimuli, but unable to answer questions at this time. Call light in place and continue to monitor frequently.
--- NOTE | 2020-12-09 10:29 | PM.IMHP ---
H&P: HPI History of Present Illness Date/Time: 12/09/20 Ceferino Farias is a 85 year old male that presented to our emergency department today due to altered mental status. Patient has a past medical history of anemia, CKD, CVA, dementia, GERD, GI bleed, hypertension and a history of CVA. According to family members patient was at home yesterday and he started to develop generalized weakness yesterday became altered this a.m. patient does have a history of dementia but he is normally able to follow commands. This patient is also well-known to our establishment and he is certainly not in his normal mental status state. Patient is a DNR but after discussing findings with his family they determined that they would like for him to have further diagnostic tests to determine why his mental status has declined. Unfortunately patient before transfer no pulse, breath sounds or heart rate heard or felt. Family is at bedside Chief Complaint: ams Review of Systems Review of Systems: ROS unobtainable: Yes unobtainable due to medical condition PMF Past Medical History Medical History Anemia Anemia Chronic back pain CKD (chronic kidney disease) CVA (cerebral vascular accident) Dementia Dementia Dorsalgia Dyspnea on exertion External hemorrhoid surgical removal in 97 GERD (gastroesophageal reflux disease) GI bleed Hernia, abdominal Surgical repair x's 2 in the Hypertension Thyroid nodule Surgical History Surgical History History of back surgery History of back surgery 2014 History of bilateral knee replacement History of knee surgery Bilateral Knees 2009 History of left hip replacement History of left hip replacement 2011 Family History Family History Mother Diabetes mellitus Emphysema of lung Father CAD (coronary artery disease) Dementia Father No problems noted. Mother No problems noted. Social History Social History Smoking status: Former smoker Tobacco type: cigars Second hand tobacco smoke exposure: Yes Smoking end date: 04/29/99 Alcohol intake: unknown Drinks per week: 1 Substance use: unknown Substance use type: does not use Additional living arrangements comments: . Lives with . 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 Gender identity (if verbalized by the patient): Male Sexual Orientation (if Verbalized by the Patient): Straight or Heterosexual Spiritual care concerns: No Meds Home Medications and Allergies Home Medications Medication Instructions Recorded Confirmed Type docusate sodium 100 mg PO BID 10/12/19 12/09/20 History citalopram 20 mg tablet 20 mg PO DAILY #90 tablet 04/03/20 12/09/20 Rx donepezil [Aricept] 5 mg PO HS 05/05/20 12/09/20 History tramadol 50 mg PO PRN PRN 07/21/20 12/09/20 History vitamin B complex-folic acid 1 tablet PO DAILY 07/21/20 12/09/20 History atorvastatin 10 mg tablet 5 mg PO DAILY #60 tablet 10/10/20 12/09/20 Rx ferrous sulfate 325 mg (65 mg 325 mg PO DAILY #30 tablet 10/10/20 12/09/20 Rx iron) tablet Allergies Allergy/AdvReac Type Severity Reaction Status Date / Time cephalexin [From Keflex] Allergy Hives Verified 11/29/20 10:22 diazepam [From Valium] AdvReac Confusion Verified 11/29/20 10:22 Exam Const: General: ill appearing HENMT: Head: normal to inspection Resp: Effort & Inspection: abnormal respiratory pattern Neuro: General: Unable to assess gait Cognition (Neuro): abnormal cognition Motor exam (neuro): Abnormal motor strength present and Abnormal muscle tone present Assessment and Plan Assessment and plan (1) CKD (chronic kidney disease): Code(s): N18.9 - Chronic kidney disease, unspecified
[2020-12-09] MEDS: SODIUM CHLORIDE 0.9% IV 1,000 ML 100 ML IV CONT (10:30)
[2020-12-09 11:16] VITALS: BP 148/71; PULSE 58; RESP 20; TEMP 35.7; O2SAT 93
[2020-12-09 12:00] VITALS: BMI 25.9
--- NOTE | 2020-12-09 13:50 | PC.NURSE ---
Patient was observed from the door by physical therapy to not be breathing. PT alerted the nursing staff. Upon entering the room, pt appeared pale and not breathing. No radial pulse was present and no heart sounds on auscultation. Billie, GUADALUPE and charge nurse notified.
--- NOTE | 2020-12-09 13:52 | PM.TDS ---
Transfer Discharge Sum: Prov Provider Date of admission: 12/09/20 08:36 Primary care physician: Raymond Ahuja MD Admitting clinician: Tavon York MD DS: Admitting Diagnosis Discharge Date 12/15/20 Admitting Diagnosis Encephalopathy, rule out CVA Transfer Discharge Sum: Med Medications Active and Home Medications: Home Medications docusate sodium 100 mg PO BID 10/12/19 [History Confirmed 12/09/20] citalopram 20 mg tablet 20 mg PO DAILY #90 tablet 04/03/20 [Rx Confirmed 12/09/20] donepezil [Aricept] 5 mg PO HS 05/05/20 [History Confirmed 12/09/20] tramadol 50 mg PO PRN PRN 07/21/20 [History Confirmed 12/09/20] vitamin B complex-folic acid 1 tablet PO DAILY 07/21/20 [History Confirmed 12/09/20] atorvastatin 10 mg tablet 5 mg PO DAILY #60 tablet 10/10/20 [Rx Confirmed 12/09/20] ferrous sulfate 325 mg (65 mg iron) tablet 325 mg PO DAILY #30 tablet 10/10/20 [Rx Confirmed 12/09/20] Active Medications Bisacodyl (Bisacodyl 10 Mg Suppository) 10 mg RECTAL ONCE PRN PRN Reason: Constipation Clopidogrel Bisulfate (Clopidogrel Bisulfate 75 Mg Tablet) 75 mg PO QAM [facility] Last Admin: 12/09/20 10:40 Dose: Not Given Documented by: Sodium Chloride (Normal Saline Iv) 1,000 mls @ 100 mls/hr IV CONT .Q10H [facility] Last Admin: 12/09/20 10:30 Dose: 100 mls/hr Documented by: Morphine Sulfate (Morphine Sulfate (*Crx) 2 Mg/Ml Inj) 2 mg IV PUSH Q4H PRN PRN Reason: Pain Rated 7-10 Transfer Discharge Sum: Hosp Time Spent with Patient Time attestation: Total time spent providing and/or coordinating transfer services: 60 minutes DS: Data Data Completed and Pending Labs on day of discharge: Labs from last 24 hours 12/09/20 12/09/20 12/09/20 07:49 07:49 07:49 WBC RBC Hgb Hct MCV MCH MCHC RDW Plt Count MPV Immature Gran % (Auto) Neut % (Auto) Lymph % (Auto) Ness % (Auto) Eos % (Auto) Baso % (Auto) Lymph # (Auto) Ness # (Auto) Eos # (Auto) Baso # (Auto) Abs Immat Gran (auto) Absolute Neuts (auto) Absolute Nucleated RBC Nucleated RBC % PT INR APTT Puncture Site Left radial ABG pH 7.44 ABG pCO2 42.1 ABG pO2 72.7 L ABG PO2/FiO2 Ratio Not Reportable ABG HCO3 27.6 ABG O2 Saturation 93.5 L ABG O2 Content 14.3 L ABG Base Excess 3.1 H A-a Gradient Not Reportable Oxyhemoglobin 92.9 L Total Hemoglobin 10.9 L O2 Delivery Device Nasal cannula O2 Liters/Min 3.0 Sodium Potassium Chloride Carbon Dioxide Anion Gap BUN Creatinine Estim Creat Clear Calc Estimated GFR Glucose POC Capillary Glucose Calculated Osmolality Lactic Acid 1.0 Calcium Total Bilirubin AST ALT Alkaline Phosphatase Troponin I 13.0 Total Protein Albumin 12/09/20 12/09/20 12/09/20 07:49 07:49 07:49 WBC 10.1 RBC 3.63 L Hgb 9.8 L Hct 32.3 L MCV 89.0 MCH 27.0 MCHC 30.3 L RDW 13.5 Plt Count 378 MPV 10.2 Immature Gran % (Auto) 0.9 H Neut % (Auto) 86.8 H Lymph % (Auto) 8.1 L Ness % (Auto) 4.0 Eos % (Auto) 0.0 L Baso % (Auto) 0.2 Lymph # (Auto) 0.81 L Ness # (Auto) 0.40 Eos # (Auto) 0.00 L Baso # (Auto) 0.02 Abs Immat Gran (auto) 0.09 H Absolute Neuts (auto) 8.7 H Absolute Nucleated RBC 0.00 Nucleated RBC % 0.0 PT 11.0 INR 1.0 APTT 24.4 Puncture Site ABG pH ABG pCO2 ABG pO2 ABG PO2/FiO2 Ratio ABG HCO3 ABG O2 Saturation ABG O2 Content ABG Base Excess A-a Gradient Oxyhemoglobin Total Hemoglobin O2 Delivery Device O2 Liters/Min Sodium 141 Potassium 3.9 Chloride 105 Carbon Dioxide 25 Anion Gap 11 BUN 15 Creatinine 0.97 Estim Creat Clear Calc Not Reportable Estimated GFR > 60 Glucose 144 H POC Capillary Glucose Calculated Osmolality 295 Lactic Acid Calcium 8.5 Total
--- NOTE | 2020-12-09 14:03 | PM.DDS ---
Discharge Summary Date and Time Date of : 12/09/20 Time of : 14:04 Provider Pronounced By: Billie chowdhury Probable Cause of Probable Cause of : possible CVA Summary Hospital Course: Ceferino Farias is a 85 year old male that presented to our emergency department today due to altered mental status. Patient has a past medical history of anemia, CKD, CVA, dementia, GERD, GI bleed, hypertension and a history of CVA. According to family members patient was at home yesterday and he started to develop generalized weakness yesterday became altered this a.m. patient does have a history of dementia but he is normally able to follow commands. This patient is also well-known to our establishment and he is certainly not in his normal mental status state. Patient is a DNR but after discussing findings with his family they determined that they would like for him to have further diagnostic tests to determine why his mental status has declined. Unfortunately patient before transfer no pulse, breath sounds or heart rate heard or felt. Family is at bedside Additional Data Was code activated?: No Provider Requests Autopsy: No Family Requests Autopsy: No Date [facility] Notified of : 12/09/20 Time [facility] Notified of : 14:23 Advance directives: Yes Hospice patient?: No
--- NOTE | 2020-12-09 17:22 | PC.NURSE ---
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
== END 2020-12-09 15:50 | disposition expired | DRG 66 ==
LOC: CHSED 08:36 → CHS2ND 08:44
PROVIDERS: Admitting Provider Emergency Medicine; Emergency Provider Emergency Medicine; PCP Family Medicine; Visit Provider Emergency Medicine
DX: I63.9 Cerebral infarction, unspecified; I12.9 Hypertensive chronic kidney disease with stage 1 through stage 4 chronic kidney disease, or unspecified chronic kidney disease; N18.9 Chronic kidney disease, unspecified; M54.9 Dorsalgia, unspecified; K21.9 Gastro-esophageal reflux disease without esophagitis; R53.1 Weakness; G89.29 Other chronic pain; F03.90 Unspecified dementia, unspecified severity, without behavioral disturbance, psychotic disturbance, mood disturbance, and anxiety; Z86.73 Personal history of transient ischemic attack (TIA), and cerebral infarction without residual deficits; Z96.653 Presence of artificial knee joint, bilateral; Z96.642 Presence of left artificial hip joint; Z87.891 Personal history of nicotine dependence
CPT/HCPCS: 36415; 36600; 70450; 71045; 80053; 82805; 82948; 83605; 84484; 85025; 85610; 85730; 87040; 92610; 93005; 93880; 99285; J7030